=== PATIENT | male | born 1970 | race Caucasian/White ===

== ENCOUNTER 2020-03-16 17:50 | Inpatient (IN) | payer MEDICAID, SELFPAY ==
[2020-03-16 17:56] VITALS: BP 73/55; PULSE 121; RESP 18; TEMP 36.6; O2SAT 92; BMI 13.6
--- NOTE | 2020-03-16 18:13 | XR_ITS ---
WS: [id number] XR chest 1V portable [id number] REASON FOR EXAM: dyspnea FINDINGS: There is a cavitary complex mass in the right upper medial lung/mediastinum. Coarse reticular nodular interstitial infiltrative changes seen in association. Coarse reticular pattern seen throughout both lungs, accentuated in the lower lungs. 2 nodules in th e periphery of the extreme left lower lung overlying the left costophrenic angle. Interstitial infiltrative changes in the medial posterior most right lower lung. Chemotherapy port in place in the left chest wall with catheter through the left subclavian vein and tip at the cavoatrial junction. XR/XR chest 1V portable [id number] IMPRESSION: Neoplastic involvement of the chest as above. No prior examination for comparis on. Unable to identify acute abnormalities without previous for comparison.
--- NOTE | 2020-03-16 18:50 | W.ED.SOB ---
Documented by User: Checo Mendoza DO 03/17/20 08:04 HPI - SOB/Dyspnea General: Chief Complaint: Shortness of Breath/Dyspnea Stated Complaint: low o2 levels Time Seen by Provider: 03/16/20 18:07 History of Present Illness: HPI Narrative: 49-year-old male presents emergency room complaining of shortness of breath. He has a known history of pharyngeal CA and is currently getting chemotherapy in [place]. He had recently been in the [place] [facility] but he did not like the condition so they moved out with his son. He said shortness of breath last few weeks markedly worsened over the last several days he has moderately productive cough with chills. He does have a PEG tube and he does not usually swallow anything he has a history of COPD he is also had some loose stools recently. Not due for his next chemo treatment until the end of this month. MD elicited complaint: shortness of breath and cough Pertinent past history: COPD Onset (ago): week(s) Context: occurred during exertion Timing: constant Severity: severe Relieving factors: rest Associated symptoms: Reports chest congestion, cough and myalgias; Deny abdominal pain, chest pain, diaphoresis, dizziness, extremity pain, fever(s), hemoptysis, lightheadedness, orthopnea, palpitations, paresthesias, polydipsia, polyuria, rash, sense of impending doom, syncope or vomiting Treatment prior to arrival: none Review of Systems Const: Denies: fever(s) or diaphoresis ENMT: Denies: throat pain, ear or mastoid pain, nasal discharge or nasal congestion Card: Denies: chest pain, palpitations, lightheadedness, syncope or orthopnea Resp: Reports: chest congestion; Denies: hemoptysis GI: Denies: abdominal pain or vomiting : Denies: flank pain, dysuria, urinary frequency or urinary urgency Musc: Denies: extremity pain Skin/Breast: Denies: rash or pruritus Neuro: Denies: dizziness Endo: Denies: polyuria or polydipsia PFSH ED PFSH: Medical History (Updated 03/17/20 @ 01:32 by Farzad Mendez MD) COPD (chronic obstructive pulmonary disease) Esophageal cancer GERD (gastroesophageal reflux disease) Malignant neoplasm determined by biopsy of esophagus Pharyngeal cancer Port-A-Cath in place Surgical History (Updated 03/17/20 @ 01:32 by Farzad Mendez MD) H/O hand surgery H/O knee surgery S/P percutaneous endoscopic gastrostomy (PEG) tube placement Family History (Updated 03/17/20 @ 01:33 by Farzad Mendez MD) Other No pertinent family history Social History (Updated 03/17/20 @ 01:33 by Farzad Mendez MD) Smoking and tobacco status: former smoker Alcohol intake: never Substance/Drug Use: never Housing: House Physical Exam Const: GENERAL APPEARANCE: cooperative, lethargic and ill appearing NUTRITIONAL APPEARANCE: cachectic (Significant temporal wasting) ORIENTATION/CONSCIOUSNESS: Yes awake, Yes oriented to person, Yes oriented to place, Yes oriented to time and Yes lethargic HENMT: COMMON NORMALS: normocephalic, atraumatic and hearing grossly normal bilaterally HEAD & SCALP: normocephalic and atraumatic Neck/C-Spine: COMMON NORMALS: no JVD Resp: AUSCULTATION: wheezes and diminished lung sounds Cardio: COMMON NORMALS: no JVD, regular rate, regular rhythm and No murmurs present (Cardio) RATE: regular rate RHYTHM: regular rhythm GI: COMMON NORMALS: Soft to palpation and No hepatosplenomegaly present AUSCULTATION: Yes normoactive bowel sounds PALPATION: Yes Soft to palpation, No Tenderness to palpation present (GI), No Guarding due to palpation present (GI) and Yes No hepatosplenomegaly present Neuro: SENSORIUM/ORIENTATION: Yes oriented to person, Yes oriented to place, Yes oriented to time and Yes lethargic Skin: COMMON NORMALS: no rashes or lesions noted GENERAL SKIN EXAM: no rashes or lesions noted Course Vital Signs: Vital signs: Vital Signs Temperature 97.8 F 03/17/20 07:45 Pulse Rate 68 03/17/20 07:45 Respiratory Rate 18 03/17/20 07:45 Blood Pressure 88/63 03/17/20 07:45 Pulse Oximetry 100 03/17/20 07:45 MDM - SOB/Dyspnea MDM Narrative: Medical decision making narrative: Care turned over to Dr. Vasquez at change of shift see his notes for final diagnosis and disposition Lab Data: Labs: Lab Results 03/16/20 03/16/20 03/16/20 Range/Units 19:15 19:15 19:15 WBC 11.7 H (4.0-10.0) 10^3/ uL RBC 3.29 L (4.1-5.3) 10^6/u L Hgb 11.4 L (11.7-16.6) g/dL Hct 35.4 L (42.0-52.0) % MCV 107.6 H (80-94) fL MCH 34.7 H (28.0-34.0) pg MCHC 32.2 (30.0-36.0) g/dL RDW 14.4 (12.1-15.1) % Plt Count 229 (130-400) 10^3/c mm MPV 9.0 (7.4-10.4) fL Neut % (Auto) 83.2 % Lymph % (Auto) 6.2 % [place] % (Auto) 9.9 % Eos % (Auto) 0.1 % Baso % (Auto) 0.3 % Neut # (Auto) 9.74 H (1.8-7.7) 10^3/u L Lymph # (Auto) 0.7 L (0.8-4.8) 10^3/u L [place] # (Auto) 1.2 H (0.2-0.9) 10^3/u L Eos # (Auto) 0.0 (0.0-0.8) 10^3/u L Baso # (Auto) 0.0 (0.0-0.1) 10^3/u L Nucleated RBC % (a uto) 0 % Nucleated RBCs # 0.0 /100WBC D-Dimer 1.55 H (0-0.59) ug/mIFE U Sodium 139 (136-145) mmol/L Potassium 3.8 (3.5-5.1) mmol/L Chloride 101 (98-107) mmol/L Carbon Dioxide 32 H (22-29) mmol/L Anion Gap 9.8 (5-19) BUN 20 (6-20) mg/dL Creatinine 0.5 L (0.7-1.2) mg/dL GFR Calculation 175.3 H (90-130) mL/min Glucose 109 (65-115) mg/dL Calculated Osmolal ity 291 (285-295) mOsm/k g Lactic Acid (0.5-2.2) mmol/L Calcium 9.5 (8.5-10.5) mg/dL Total Bilirubin 0.5 (0.15-1.2) mg/dL AST 66 H (0-40) U/L ALT 71 H (0-41) U/L Alkaline Phosphata se 121 (40-130) IU/L Creatine Kinase 8 L (39-308) U/L Troponin T Baselin e (0-15) ng/L Troponin T 120 Min [place] (0-15) ng/L Delta Troponin T (0-10) ABS# C-Reactive Protein 9.9 H (0.0-4.9) mg/L Total Protein 6.7 (6.6-8.7) g/dL Albumin 3.1 L (3.5-5.2) g/dL Globulin 3.6 (1.3-4.6) g/dL SARS-CoV-2 Ag (Rap id) (Negative) 03/16/20 03/16/20 03/16/20 Range/Units 19:15 19:23 22:46 WBC (4.0-10.0) 10^3/ uL RBC (4.1-5.3) 10^6/u L Hgb (11.7-16.6) g/dL Hct (42.0-52.0) % MCV (80-94) fL MCH (28.0-34.0) pg MCHC (30.0-36.0) g/dL RDW (12.1-15.1) % Plt Count (130-400) 10^3/c mm MPV (7.4-10.4) fL Neut % (Auto) % Lymph % (Auto) % [place] % (Auto) % Eos % (Auto) % Baso % (Auto) % Neut # (Auto) (1.8-7.7) 10^3/u L Lymph # (Auto) (0.8-4.8) 10^3/u L [place] # (Auto) (0.2-0.9) 10^3/u L Eos # (Auto) (0.0-0.8) 10^3/u L Baso # (Auto) (0.0-0.1) 10^3/u L Nucleated RBC % (a uto) % Nucleated RBCs # /100WBC D-Dimer (0-0.59) ug/mIFE U Sodium (136-145) mmol/L Potassium (3.5-5.1) mmol/L Chloride (98-107) mmol/L Carbon Dioxide (22-29) mmol/L Anion Gap (5-19) BUN (6-20) mg/dL Creatinine (0.7-1.2) mg/dL GFR Calculation (90-130) mL/min Glucose (65-115) mg/dL Calculated Osmolal ity (285-295) mOsm/k g Lactic Acid 1.3 (0.5-2.2) mmol/L Calcium (8.5-10.5) mg/dL Total Bilirubin (0.15-1.2) mg/dL AST (0-40) U/L ALT (0-41) U/L Alkaline Phosphata se (40-130) IU/L Creatine Kinase (39-308) U/L Troponin T Baselin e 12 (0-15) ng/L Troponin T 120 Min [place] (0-15) ng/L Delta Troponin T (0-10) ABS# C-Reactive Protein (0.0-4.9) mg/L Total Protein (6.6-8.7) g/dL Albumin (3.5-5.2) g/dL Globulin (1.3-4.6) g/dL SARS-CoV-2 Ag (Rap id) Negative (Negative) 03/17/20 Range/Units 00:53 WBC (4.0-10.0) 10^3/ uL RBC (4.1-5.3) 10^6/u L Hgb (11.7-16.6) g/dL Hct (42.0-52.0) % MCV (80-94) fL MCH (28.0-34.0) pg MCHC (30.0-36.0) g/dL RDW (12.1-15.1) % Plt Count (130-400) 10^3/c mm MPV (7.4-10.4) fL Neut % (Auto) % Lymph % (Auto) % [place] % (Auto) % Eos % (Auto) % Baso % (Auto) % Neut # (Auto) (1.8-7.7) 10^3/u L Lymph # (Auto) (0.8-4.8) 10^3/u L [place] # (Auto) (0.2-0.9) 10^3/u L Eos # (Auto) (0.0-0.8) 10^3/u L Baso # (Auto) (0.0-0.1) 10^3/u L Nucleated RBC % (a uto) % Nucleated RBCs # /100WBC D-Dimer (0-0.59) ug/mIFE U Sodium (136-145) mmol/L Potassium (3.5-5.1) mmol/L Chloride (98-107) mmol/L Carbon Dioxide (22-29) mmol/L Anion Gap (5-19) BUN (6-20) mg/dL Creatinine (0.7-1.2) mg/dL GFR Calculation (90-130) mL/min Glucose (65-115) mg/dL Calculated Osmolal ity (285-295) mOsm/k g Lactic Acid (0.5-2.2) mmol/L Calcium (8.5-10.5) mg/dL Total Bilirubin (0.15-1.2) mg/dL AST (0-40) U/L ALT (0-41) U/L Alkaline Phosphata se (40-130) IU/L Creatine Kinase (39-308) U/L Troponin T Baselin e (0-15) ng/L Troponin T 120 Min [place] 9.77 (0-15) ng/L Delta Troponin T -2.23 L (0-10) ABS# C-Reactive Protein (0.0-4.9) mg/L Total Protein (6.6-8.7) g/dL Albumin (3.5-5.2) g/dL Globulin (1.3-4.6) g/dL SARS-CoV-2 Ag (Rap id) (Negative) Discharge Plan Discharge Patient Disposition: Admitted As Inpatient Admit Provider: Farzad Mendez Clinical Impression: Pneumonia Qualifiers: Pneumonia type: due to unspecified organism Laterality: right Lung location: upper lobe of lung Qualified Code(s): J18.9 - Pneumonia, unspecified organism Esophageal cancer Qualifiers: Malignant neoplasm of esophagus location: upper third Qualified Code(s): C15.3 - Malignant neoplasm of upper third of esophagus Condition: Stable Sign Out Sign Out Data: Patient Sign Out occurred on 03/16/20 at 20:16. Patient's care was discussed, and care was transferred from to Gifty Bourne. Coding Level of Care Code ED Metal Template Maker for [facility] Fwd Exam Detailed Documented by User: Gifty Bourne 03/17/20 00:58 HPI - SOB/Dyspnea General: Chief Complaint: Shortness of Breath/Dyspnea Stated Complaint: low o2 levels Time Seen by Provider: 03/16/20 18:07 PFS ED PFSH: Medical History (Updated 03/17/20 @ 01:32 by Farzad Mendez MD) COPD (chronic obstructive pulmonary disease) Esophageal cancer GERD (gastroesophageal reflux disease) Malignant neoplasm determined by biopsy of esophagus Pharyngeal cancer Port-A-Cath in place Surgical History (Updated 03/17/20 @ 01:32 by Farzad Mendez MD) H/O hand surgery H/O knee surgery S/P percutaneous endoscopic gastrostomy (PEG) tube placement Family History (Updated 03/17/20 @ 01:33 by Farzad Mendez MD) Other No pertinent family history Social History (Updated 03/17/20 @ 01:33 by Farzad Mendez MD) Smoking and tobacco status: former smoker Alcohol intake: never Substance/Drug Use: never Housing: House Course ED course: 2301 -EKG and history and exam were reviewed with Dr. Edward, as the patient has chest pain only when coughing he would like to wait to see what the troponin results are. Vital Signs: Vital signs: Vital Signs Temperature 97.8 F 03/17/20 07:45 Pulse Rate 68 03/17/20 07:45 Respiratory Rate 18 03/17/20 07:45 Blood Pressure 88/63 03/17/20 07:45 Pulse Oximetry 100 03/17/20 07:45 MDM - SOB/Dyspnea MDM Narrative: Medical decision making narrative: The case was reviewed with Dr. Perry, the patient's oncologist at [place]. He states the patient has a very poor prognosis and is likely end-stage. He states at this time the patient can be treated like a normal pneumonia and if he recovers in a few months he may be able to talk about further treatment but he overall does not think that is likely to happen. Old records were received from [place] this patient's fistula is unchanged going back all the way to November. Dr. Kumar also commented that there is no definitive treatment for this. I have endorsed the case to Dr. Mendez and he agrees to come and see and evaluate the patient. Lab Data: Labs: Lab Results 03/16/20 03/16/20 03/16/20 Range/Units 19:15 19:15 19:15 WBC 11.7 H (4.0-10.0) 10^3/ uL RBC 3.29 L (4.1-5.3) 10^6/u L Hgb 11.4 L (11.7-16.6) g/dL Hct 35.4 L (42.0-52.0) % MCV 107.6 H (80-94) fL MCH 34.7 H (28.0-34.0) pg MCHC 32.2 (30.0-36.0) g/dL RDW 14.4 (12.1-15.1) % Plt Count 229 (130-400) 10^3/c mm MPV 9.0 (7.4-10.4) fL Neut % (Auto) 83.2 % Lymph % (Auto) 6.2 % [place] % (Auto) 9.9 % Eos % (Auto) 0.1 % Baso % (Auto) 0.3 % Neut # (Auto) 9.74 H (1.8-7.7) 10^3/u L Lymph # (Auto) 0.7 L (0.8-4.8) 10^3/u L [place] # (Auto) 1.2 H (0.2-0.9) 10^3/u L Eos # (Auto) 0.0 (0.0-0.8) 10^3/u L Baso # (Auto) 0.0 (0.0-0.1) 10^3/u L Nucleated RBC % (a uto) 0 % Nucleated RBCs # 0.0 /100WBC D-Dimer 1.55 H (0-0.59) ug/mIFE U Sodium 139 (136-145) mmol/L Potassium 3.8 (3.5-5.1) mmol/L Chloride 101 (98-107) mmol/L Carbon Dioxide 32 H (22-29) mmol/L Anion Gap 9.8 (5-19) BUN 20 (6-20) mg/dL Creatinine 0.5 L (0.7-1.2) mg/dL GFR Calculation 175.3 H (90-130) mL/min Glucose 109 (65-115) mg/dL Calculated Osmolal ity 291 (285-295) mOsm/k g Lactic Acid (0.5-2.2) mmol/L Calcium 9.5 (8.5-10.5) mg/dL Total Bilirubin 0.5 (0.15-1.2) mg/dL AST 66 H (0-40) U/L ALT 71 H (0-41) U/L Alkaline Phosphata se 121 (40-130) IU/L Creatine Kinase 8 L (39-308) U/L Troponin T Baselin e (0-15) ng/L Troponin T 120 Min [place] (0-15) ng/L Delta Troponin T (0-10) ABS# C-Reactive Protein 9.9 H (0.0-4.9) mg/L Total Protein 6.7 (6.6-8.7) g/dL Albumin 3.1 L (3.5-5.2) g/dL Globulin 3.6 (1.3-4.6) g/dL SARS-CoV-2 Ag (Rap id) (Negative) 03/16/20 03/16/20 03/16/20 Range/Units 19:15 19:23 22:46 WBC (4.0-10.0) 10^3/ uL RBC (4.1-5.3) 10^6/u L Hgb (11.7-16.6) g/dL Hct (42.0-52.0) % MCV (80-94) fL MCH (28.0-34.0) pg MCHC (30.0-36.0) g/dL RDW (12.1-15.1) % Plt Count (130-400) 10^3/c mm MPV (7.4-10.4) fL Neut % (Auto) % Lymph % (Auto) % [place] % (Auto) % Eos % (Auto) % Baso % (Auto) % Neut # (Auto) (1.8-7.7) 10^3/u L Lymph # (Auto) (0.8-4.8) 10^3/u L [place] # (Auto) (0.2-0.9) 10^3/u L Eos # (Auto) (0.0-0.8) 10^3/u L Baso # (Auto) (0.0-0.1) 10^3/u L Nucleated RBC % (a uto) % Nucleated RBCs # /100WBC D-Dimer (0-0.59) ug/mIFE U Sodium (136-145) mmol/L Potassium (3.5-5.1) mmol/L Chloride (98-107) mmol/L Carbon Dioxide (22-29) mmol/L Anion Gap (5-19) BUN (6-20) mg/dL Creatinine (0.7-1.2) mg/dL GFR Calculation (90-130) mL/min Glucose (65-115) mg/dL Calculated Osmolal ity (285-295) mOsm/k g Lactic Acid 1.3 (0.5-2.2) mmol/L Calcium (8.5-10.5) mg/dL Total Bilirubin (0.15-1.2) mg/dL AST (0-40) U/L ALT (0-41) U/L Alkaline Phosphata se (40-130) IU/L Creatine Kinase (39-308) U/L Troponin T Baselin e 12 (0-15) ng/L Troponin T 120 Min [place] (0-15) ng/L Delta Troponin T (0-10) ABS# C-Reactive Protein (0.0-4.9) mg/L Total Protein (6.6-8.7) g/dL Albumin (3.5-5.2) g/dL Globulin (1.3-4.6) g/dL SARS-CoV-2 Ag (Rap id) Negative (Negative) 03/17/20 Range/Units 00:53 WBC (4.0-10.0) 10^3/ uL RBC (4.1-5.3) 10^6/u L Hgb (11.7-16.6) g/dL Hct (42.0-52.0) % MCV (80-94) fL MCH (28.0-34.0) pg MCHC (30.0-36.0) g/dL RDW (12.1-15.1) % Plt Count (130-400) 10^3/c mm MPV (7.4-10.4) fL Neut % (Auto) % Lymph % (Auto) % [place] % (Auto) % Eos % (Auto) % Baso % (Auto) % Neut # (Auto) (1.8-7.7) 10^3/u L Lymph # (Auto) (0.8-4.8) 10^3/u L [place] # (Auto) (0.2-0.9) 10^3/u L Eos # (Auto) (0.0-0.8) 10^3/u L Baso # (Auto) (0.0-0.1) 10^3/u L Nucleated RBC % (a uto) % Nucleated RBCs # /100WBC D-Dimer (0-0.59) ug/mIFE U Sodium (136-145) mmol/L Potassium (3.5-5.1) mmol/L Chloride (98-107) mmol/L Carbon Dioxide (22-29) mmol/L Anion Gap (5-19) BUN (6-20) mg/dL Creatinine (0.7-1.2) mg/dL GFR Calculation (90-130) mL/min Glucose (65-115) mg/dL Calculated Osmolal ity (285-295) mOsm/k g Lactic Acid (0.5-2.2) mmol/L Calcium (8.5-10.5) mg/dL Total Bilirubin (0.15-1.2) mg/dL AST (0-40) U/L ALT (0-41) U/L Alkaline Phosphata se (40-130) IU/L Creatine Kinase (39-308) U/L Troponin T Baselin e (0-15) ng/L Troponin T 120 Min [place] 9.77 (0-15) ng/L Delta Troponin T -2.23 L (0-10) ABS# C-Reactive Protein (0.0-4.9) mg/L Total Protein (6.6-8.7) g/dL Albumin (3.5-5.2) g/dL Globulin (1.3-4.6) g/dL SARS-CoV-2 Ag (Rap id) (Negative) EKG Data^: EKG 1: Attestation: I personally reviewed and interpreted this EKG as follows: EKG Interpretation Date: 03/16/20 EKG interpretation time: 22:54 Interpretation: Normal sinus rhythm with first-degree AV block, ST segment elevation 2, 3 and aVF. 2 inversions in aVL and V2. EKG 2: Attestation: I personally reviewed and interpreted this EKG as follows: EKG Interpretation Date: 03/17/20 EKG interpretation time: 00:15 Interpretation: Normal sinus rhythm first-degree AV block, ST elevation inferiorly and T wave inversions in aVL and V2. Unchanged from previous. 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 Patient's care was discussed, and care was transferred from to [facility]. Coding Level of Care Code ED Metal Template Maker for [facility] Fwd Exam Detailed
[2020-03-16] MEDS: morphine 4 mg/mL SDV 1 mL IVP (19:28)
[2020-03-16] MEDS: dexamethasone 4 mg/mL INJ 6 MG IVP (19:28)
[2020-03-16] MEDS: sodium chloride 0.9% 500 ML 999 ML IV (19:28)
[2020-03-16] MEDS: ondansetron 2 mg/ML SDV 2 mL 4 MG IVP (19:28)
[2020-03-16 19:30] VITALS: BP 89/65; PULSE 99; RESP 18; O2SAT 92
[2020-03-16 19:30] LABS: Basophils % 0.3 %; Eosinophils % 0.1 %; Hematocrit 35.4 % (42.0-52.0); Hemoglobin 11.4 g/dL (11.7-16.6); Lymphocytes # 0.7 10^3/uL (0.8-4.8); Lymphocytes % 6.2 %; Mean Corpuscular HGB Conc 32.2 g/dL (30.0-36.0); Mean Corpuscular Hemoglobin 34.7 pg (28.0-34.0); Mean Corpuscular Volume 107.6 fL (80-94); Monocytes # 1.2 10^3/uL (0.2-0.9); Monocytes % 9.9 %; Neutrophils # 9.74 10^3/uL (1.8-7.7); Neutrophils % 83.2 %; Nucleated Red Blood Cells % 0 %; Platelet Count 229 10^3/cmm (130-400); Red Blood Count 3.29 10^6/uL (4.1-5.3); Red Cell Distribution Width 14.4 % (12.1-15.1); White Blood Count 11.7 10^3/uL (4.0-10.0)
[2020-03-16 19:48] LABS: D Dimer 1.55 ug/mIFEU (0-0.59)
[2020-03-16 19:55] LABS: Alanine Aminotransferase 71 U/L (0-41); Albumin Level 3.1 g/dL (3.5-5.2); Alkaline Phosphatase 121 IU/L (40-130); Anion Gap 9.8 (5-19); Aspartate Amino Transferase 66 U/L (0-40); Blood Urea Nitrogen 20 mg/dL (6-20); C Reactive Protein 9.9 mg/L (0.0-4.9); Calcium 9.5 mg/dL (8.5-10.5); Carbon Dioxide 32 mmol/L (22-29); Chloride 101 mmol/L (98-107); Creatine Phosphokinase 8 U/L (39-308); Globulin 3.6 g/dL (1.3-4.6); Glomerular Filtration Rate 175.3 mL/min (90-130); Glucose 109 mg/dL (65-115); Osmolality Calculated 291 mOsm/kg (285-295); Potassium 3.8 mmol/L (3.5-5.1); Sodium 139 mmol/L (136-145); Total Bilirubin 0.5 mg/dL (0.15-1.2); Total Protein 6.7 g/dL (6.6-8.7)
[2020-03-16 19:58] LABS: SARS Covid-2 Antigen Negative (Negative)
--- NOTE | 2020-03-16 20:00 | CTR_ITS ---
PROCEDURE INFORMATION: Exam: CT Angiography Chest With Contrast Exam date and time: 03/16/2020 8:08 PM Age: 49 years old Clinical indication: Shortness of breath; Prior surgery; Surgery type: Port, feeding tube; Additional info: Dyspnea TECHNIQUE: Imaging protocol: Computed tomographic angiography of the chest with intravenous contrast. 3D rendering (Not supervised by radiologist): MIP and/or 3D reconstructed images were created by the technologist. Radiation optimization: All CT scans at this facility use at least one of these dose optimization techniques: automated exposure control; mA and/or kV adjustment per patient size (includes targeted exams where dose is matched to clinical indication); or iterative reconstruction. Contrast material: OMNI 350; Contrast volume: 72 ml; Contrast route: INTRAVENOUS (IV); COMPARISON: CR XR chest 1V portable [id number] 03/16/2020 6:16 PM RADIATION DOSE METRICS: Total DLP (mGy-cm): 472.15 FINDINGS: Tubes, catheters and devices: Percutaneous gastric tube tip in the stomach. Left central venous catheter. Pulmonary arteries: Normal. No pulmonary emboli. Aorta: Unremarkable. No aortic aneurysm. No aortic dissection. Lungs: Diffuse tree-in-bud type reticular nodular densities throughout the lungs may reflect an atypical mycobacterial infection, other etiologies not excluded. Left upper lobe anterior segment 7.2 mm somewhat cavitary nodule. Right lower lobe 9.2 mm nodule. Several left lower lobe pulmonary nodules with central calcifications measuring up 9.6 mm suggestive of granulomas. Bibasilar atelectasis versus infiltrate. Right upper lobe pleuroparenchymal scarring. Pleural space: Unremarkable. No pneumothorax. No pleural effusion. Heart: Coronary artery atherosclerotic calcifications. Mediastinal space: Defect in the right aspect of the upper esophagus with an associated 4.8 cm subpleural collection of fluid with soft tissue density in the right upper lung measuring 4.8 cm may reflect underlying malignancy and/or infection with a fistulous tract from the esophagus to the subpleural space. Lymph nodes: Unremarkable. No enlarged lymph nodes. Bones/joints: Unremarkable. No acute fracture. Soft tissues: Unremarkable. CT/CT angio chest PE protcl [id number] IMPRESSION: 1. Coronary artery atherosclerotic calcifications. 2. Defect in the right aspect of the upper esophagus with an associated 4.8 cm subpleural collection of fluid with soft tissue density in the right upper lung measuring 4.8 cm may reflect underlying malignancy and/or infection with a fistulous tract from the esophagus to the subpleural space. 3. Diffuse tree-in-bud type reticular nodular densities throughout the lungs may reflect an atypical mycobacterial infection, other etiologies not excluded. 4. Left upper lobe anterior segment 7.2 mm somewhat cavitary nodule. See below for management recommendation. 5. Right lower lobe 9.2 mm nodule. Highly suspicious nodule(s). Consider PET/CT, or tissue sampling.(Reference: Matheus) 6. Several left lower lobe pulmonary nodules with central calcifications measuring up 9.6 mm suggestive of granulomas. 7. Bibasilar atelectasis versus infiltrate. 8. Percutaneous gastric tube tip in the stomach. REFERENCES: Matheus Woodward, et al. Guidelines for Management of Incidental Pulmonary Nodules Detected on CT Images: From the Fleischner Society 2017. Radiology. 2017;284(1):228-243. Radiation Dose CTDIVOL = (mGy): DLP = 472.15 (mGy-cm)
[2020-03-16 20:08] LABS: Lactic Sepsis W/Reflex 1.3 mmol/L (0.5-2.2)
[2020-03-16] MEDS: iohexol 300 mg/mL 100 mL Btl IV (21:29)
[2020-03-16] MEDS: sodium chloride 0.9% 1,000 ML 999 ML IV (22:11)
--- NOTE | 2020-03-16 22:29 | ECG_ITS ---
[facility] Test Date: 2020-03-16 Pat Name: Jessica Gonzalez Department: Room: Gender: Male Immigration Manager: shellie : 1970 Requested By: Gifty Junior Order Number: [id number] Wayne MD: Padma Aguilar M.D. Measurements Intervals [place] Rate: 93 P: 80 MN: 202 QRS: 79 QRSD: 88 T: 87 QT: 348 QTc: 433 Interpretive Statements SINUS RHYTHM WITH OCCASIONAL VENTRICULAR PREMATURE COMPLEXES MODERATE ST DEPRESSION [0.05+ mV ST DEPRESSION] No previous ECG available for comparison Electronically Signed On 03-17-2020 19:35:44 LIQUID NATURAL GAS PLANT OPERATOR by Padma Aguilar M.D. [id number] f
--- NOTE | 2020-03-16 22:36 | ECG_ITS ---
[facility] Test Date: 2020-03-16 Pat Name: Jessica Gonzalez Department: Room: Gender: Male Cad Draftsman: shellie : 1970 Requested By: Gifty Junior Order Number: [id number] Black MD: Padma Aguilar M.D. Measurements Intervals [place] Rate: 87 P: 78 [place]: 215 QRS: 78 QRSD: 81 T: 85 QT: 353 QTc: 427 Interpretive Statements SINUS RHYTHM WITH FIRST DEGREE AV BLOCK SEPTAL MYOCARDIAL INFARCTION [40+ ms Q WAVE IN V1/V2], OF INDETERMINATE AGE ST ELEVATION, CONSIDER INFERIOR INJURY [MARKED ST ELEVATION W/O NORMALLY INFLECTED T WAVE IN II/aVF] ACUTE AK Compared to ECG 03/16/2020 22:34:10 First degree AV block now present Myocardial infarct finding now present Ventricular premature complex(es) no longer present ST (T wave) deviation still present Electronically Signed On 03-17-2020 20:33:13 WAITER/WAITRESS FIRST CLASS by Padma Aguilar M.D. [id number]
[2020-03-16 23:36] LABS: Troponin(5th) Baseline 12 ng/L (0-15)
[2020-03-16] MEDS: piperacillin-tazobactam 3.375 GM in sodium chloride 0.9% (plus) 50 ML IV (23:38)
--- NOTE | 2020-03-16 23:53 | P.HP_ITS ---
Providers/Chief Complaint Chief Complaint: low o2 levels History of Present Illness Jessica Gonzalez is a 49 year old male presented to the hospital with chief complaint of shortness of breath and chest pain with coughing. Patient is not able to give much detail I called his son to get the report to me that his father moved in with him on Monday, he does not know much about his past medical history but endorsing that in September he got diagnosed with esophageal cancer with metastases to lungs. On further questioning he said his father mostly keeps everything to himself would not share much information with children at all. His son called independent living [facility] to arrange home health services yesterday morning. Patient is able to tell me that he is in the hospital for worsening shortness of breath chest pain which gets worse on coughing, chest pain on the left side, he did not vomit, no nausea, diaphoresis. At home he has been using popsicles and soda to give flavor to his tongue, otherwise feeds via PEG tube. ER physician was able to get in touch with oncologist at [facility] who told us that chemotherapy was on held because he was not able to tolerate it anymore. Patient stated that he is status post radiotherapy and finished 4 cycles of chemotherapy apparently he is on Keytruda. He wants to live with his children that is why he moved to [place]. Diagnosis in the ER revealed hypotension patient is chest pain-free afebrile, mild leukocytosis high D-dimer first troponin XII second troponin IX EKG showing ST elevation in lead II, III, aVF, EKG reviewed by medical massage therapist as well, considering nonsignificant delta troponin and chest pain-free STEMI was not called. 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 I increased his oxygen requirement to 5 L because of his hypoxia on 3 L i.e 88-99% . records were requested from [facility], this fistula is chronic was diagnosed in November 2019, he was put on Levaquin for atypical mycobacterial coverage. His oncologist told ER physician that he is not a good candidate for any kind of surgical intervention. I called son and discussed current findings, old records. Review of Systems Const: Reports: chills, body aches, change in appetite, change in weight, fatigue and malaise; Denies: fever(s) Eyes: Denies: change in vision ENMT: Denies: throat pain Card: Reports: chest pain and dyspnea on exertion Resp: Reports: dyspnea GI: Denies: abdominal pain : Denies: flank pain Musc: Reports: muscle cramps, muscle weakness and decrease in muscle mass Skin/Breast: Reports: lesions Neuro: Reports: weakness in extremities Psych: Reports: depression; Denies: anxiety Endo: Reports: tired all the time Max/Lymph: Denies: easy bruising All/Imm: Denies: urticaria Medications/Allergies Home Medications Medication Instructions Recorded Confirmed Last Taken Type alprazolam 1 mg PO DAILY@2100 03/16/20 03/16/20 03/15/20 History levofloxacin 500 mg FEEDING TUBE DAILY@0800 03/16/20 03/16/20 03/16/20 History olanzapine 5 mg FEEDING TUBE DAILY@0800 03/16/20 03/16/20 03/16/20 History oxycodone 5 mg FEEDING TUBE Q4H PRN 03/16/20 03/16/20 03/16/20 History prochlorperazine 10 mg FEEDING TUBE DAILY@0800 03/16/20 03/16/20 03/16/20 History Allergies Allergy/AdvReac Type Severity Reaction Status Date / Time No Known Allergies Allergy Verified 03/16/20 18:04 PFSH Acute PFSH: Medical History (Updated 03/17/20 @ 01:32 by Farzad Mendez MD) COPD (chronic obstructive pulmonary disease) Esophageal cancer GERD (gastroesophageal reflux disease) Malignant neoplasm determined by biopsy of esophagus Pharyngeal cancer Port-A-Cath in place Surgical History (Updated 03/17/20 @ 01:32 by Farzad Mendez MD) H/O hand surgery H/O knee surgery S/P percutaneous endoscopic gastrostomy (PEG) tube placement Family History (Updated 03/17/20 @ 01:33 by Farzad Mendez MD) Other No pertinent family history Social History (Updated 03/17/20 @ 01:33 by Farzad Mendez MD) Smoking and tobacco status: former smoker Alcohol intake: never Substance/Drug Use: never Housing: House Vitals/I&O/Wt Last Vital Signs Temp 97.8 F 03/16/20 17:56 Pulse 99 03/16/20 19:30 Resp 18 03/16/20 19:30 BP 89/65 03/16/20 19:30 Pulse Ox 92 03/16/20 19:30 Weight last 48 hrs Weight 44.452 kg Physical Exam Narrative: EXAM NARRATIVE: This is a frail cachectic appearing male who appears more than stated age extremely dehydrated and malnourished Oxygen requirement increased from 3 to 5 L Not complaining of active chest pain however received analgesia S1, S2 sinus rhythm no signs of heart failure PEG tube placement has dry crusting around the placement site with most likely fungal excoriation of surrounding skin Lower extremity no edema Thin extremities Prominent bones with sarcopenia Nontender abdomen PEG tube site description mentioned above EOMI, PERRLA Awake alert oriented x3 GCS 15 Mood seems to be low No neurological deficit Left chest port of cath placement without any active drainage, site nontender Data : 03/16/20 19:15 03/16/20 19:15 A&P Assessment and plan (1) Esophageal cancer: Status: Acute Qualifiers: Malignant neoplasm of esophagus location: upper third Qualified Code(s): C15.3 - Malignant neoplasm of upper third of esophagus (2) COPD (chronic obstructive pulmonary disease): Status: Acute (3) Community acquired pneumonia: Status: Acute (4) Acute respiratory failure with hypoxia: Status: Acute Additional A&P Information Esophageal cancer with metastases to lung 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, status post radiotherapy 4 cycles of chemotherapy currently on [facility] Oncologist at [facility] chemotherapy session secondary to poor performance, not a surgical candidate for fistula repair or pneumonectomy PEG tube site has some fungal excoriation CT scan rule out PE however showing chronic changes with right upper lung cavitary mass, postobstructive pneumonia and esophageal pleural fistula I would start linezolid, meropenem, Levaquin for broad-spectrum antibacterial, atypical antimicrobial and anaerobic coverage Obtain blood and sputum culture however he is not septic at the time of admission Pleuritic chest pain PE ruled out, ST elevation evident on lead II, III, aVF however chest pain-free and troponin not significantly high, EKG reviewed by medical massage therapist STEMI alert was not called I would treat him medically with therapeutic dose of Lovenox and dual antiplatelet therapy for now Obtain echo in the morning Acute hypoxia with chronic COPD Does not use oxygen at home currently on 5 L nasal cannula High risk for intubation Goals of care discussed with the patient who stated DNR/DNI status DuoNeb, antibiotics, Malnourished sarcopenia PEG tube with close monitoring as there is also a risk of aspiration pneumonitis/pneumonia We will keep feeding tube rate at 20 cc for now Nystatin application around PEG tube placement site DNR/DNI N.p.o., PEG tube feeding DVT prophylaxis not needed currently on therapeutic dose of Lovenox Son was asking for home health services, he was also leaning towards palliative care for his father, will consult social service, we had discussion about current findings, prognosis, complications and high risk of mortality morbidity, he seemed to be receptive, all questions were answered Attestations Medical Necessity Statement*: Anticipating stay in the hospital cross more than 2 midnights considering higher mortality and morbidity and risk of deterioration he will need ICU monitoring, EKG concerning for STEMI however chest pain-free troponin not significantly high Time Spent in Patient Care: (>than 50% of time spent in counselling and/or direct pt care on unit) . 50mins Coding Level of Care Code Acute Acid Crane Operator for g Fwd Diagnoses Esophageal cancer C15.3 Malignant neoplasm of esophagus location: upper third COPD (chronic obstructive pulmonary disease) J44.9 Community acquired pneumonia J18.9 Acute respiratory failure with hypoxia J96.01
[2020-03-17] VITALS (17 sets, daily range): BP systolic 79–102; BP diastolic 46–65; PULSE 60–98; RESP 15–22; TEMP 36.4–36.6; O2SAT 91–100
--- NOTE | 2020-03-17 00:36 | ECG_ITS ---
[facility] Test Date: 2020-03-17 Pat Name: Jessica Gonzalez Department: Room: Gender: Male Stationary Engineer: : 1970 Requested By: Gifty Junior Order Number: [id number] Black MD: Padma Aguilar M.D. Measurements Intervals [place] Rate: 84 P: 80 [place]: 216 QRS: 77 QRSD: 85 T: 85 QT: 372 QTc: 442 Interpretive Statements SINUS RHYTHM WITH FIRST DEGREE AV BLOCK MODERATE ST DEPRESSION [0.05+ mV ST DEPRESSION] Compared to ECG 03/16/2020 22:54:59 Myocardial infarct finding no longer present ST (T wave) deviation still present Electronically Signed On 03-17-2020 20:04:15 CASING SOAKER by Padma Aguilar M.D. [id number]
[2020-03-17] MEDS: morphine 4 mg/mL SDV 1 mL IVP (00:40)
[2020-03-17 01:14] LABS: Troponin 5 2HR 9.77 ng/L (0-15)
[2020-03-17 01:36] LABS: Troponin 5 2HR Delta -2.23 ABS# (0-10)
--- NOTE | 2020-03-17 03:00 | USCV_ITS ---
Jessica Gonzalez Age: 49 Gender: M : 1970 Exam Date: 03/17/2020 06:20 Ordering Phys: Farzad Mendez MD Technologist: Joshua Baltazar Exam Location: [facility] [place] Indication: NSTEMI BP: 97 / 56 HR: 54 Rhythm: Sinus Technical Quality: Very technically difficult study MEASUREMENTS (Male / Female) Normal Values 2D ECHO LV Diastolic Diameter PLAX 2.7 cm 4.2 - 5.9 / 3.9 - 5.3 cm LV Systolic Diameter PLAX 2.2 cm IVS Diastolic Thickness 1.1 cm 0.6 - 1.0 / 0.6 - 0.9 cm IVS Systolic Thickness 1.1 cm LVPW Diastolic Thickness 1.0 cm 0.6 - 1.0 / 0.6 - 0.9 cm LVPW Systolic Thickness 1.3 cm LVOT Diameter 2.1 cm LV Ejection Fraction 2D Teich 35.4 % LA Diameter 3.1 cm LA Width 3.1 cm LA Height 3.5 cm RA Width 3.0 cm RA Height 4.1 cm Aorta at Sinotubular Diameter 2.7 cm M-MODE LV Diastolic Diameter MM 4.3 cm 4.2 - 5.9 / 3.9 - 5.3 cm LV Systolic Diameter MM 3.1 cm LV Ejection Fraction MM Teich 57.0 % IVS Diastolic Thickness MM 0.7 cm 0.6 - 1.0 / 0.6 - 0.9 cm IVS Systolic Thickness MM 1.0 cm LVPW Diastolic Thickness MM 0.8 cm 0.6 - 1.0 / 0.6 - 0.9 cm LVPW Systolic Thickness MM 1.1 cm RV Diastolic Diameter MM 0.8 cm Aortic Annulus Diameter 3.0 cm LA Ao Ratio MM 1.1 MV E Point Septal Separation 1.1 cm DOPPLER AV Peak Velocity 126.0 cm/s LVOT Peak Velocity 50.0 cm/s AV Area Cont Eq vti 1.4 cm squared AV Area Cont Eq pk 1.4 cm squared MV Area PHT 3.0 cm squared Mitral E to A Ratio 0.9 MV E' Velocity 48.7 cm/s TR Peak Velocity 164.0 cm/s TR Peak Gradient 10.8 mmHg TV Peak E Velocity 71.0 cm/s Right Atrial Pressure 3.0 mmHg Pulmonary Artery Systolic Pressu 13.8 mmHg FINDINGS Left Ventricle LV size with demonstration fraction of 35 to 40%. The septum and anteroseptum appears to be diffusely hypokinetic. Possible hypokinesia of the apex. Segmental wall motion analysis difficult because of the very poor apical window Right Ventricle The right ventricle is normal in size and function. Right Atrium The right atrium is normal in size. Left Atrium The left atrium is normal in size. Mitral Valve No gross abnormalities noted . Aortic Valve No gross abnormalities noted Tricuspid Valve Not visualized well. Pulmonic Valve Pulmonic valve not well visualized. Pericardium No pericardial effusion. Aorta Normal aortic annulus size. CONCLUSIONS Normal left ventricular size with diminished ejection fraction of 35 to 40%. The septum and anteroseptum appears to be diffusely hypokinetic. Possible hypokinesia of the apex. Segmental wall motion analysis difficult because of the very poor apical window. There is no pericardial effusion. No previous studies available for comparison Technically difficult study because of the poor ultrasonic window. Dr Galina Handy MD FACC (Electronically Signed) Final Date: 17 March 2020 14:02 S
[2020-03-17] MEDS: LORazepam 2 mg/mL INJ 1 mL 1 MG IVP (03:27)
[2020-03-17] MEDS: levofloxacin-dextrose 5 % 750 MG/150 ML PREMIX 100 MG IV (03:28)
[2020-03-17] MEDS: linezolid premix 600 MG/300 ML PREMIX 300 MG IV ×2 (04:26→15:09)
[2020-03-17] MEDS: nystatin powder 15 gm Btl 1 APPLIC TOPICAL (04:26)
--- NOTE | 2020-03-17 04:44 | PC.NURSE ---
Shift Summary Patient arrived to floor from ER, too weak to transfer self to bed so moved with draw sheet by nursing staff. ROBBY infused through port-a-cath with no issues. He states that he usually takes 6 cans of osmalite a day, usually every 4hours at home. He gets this through [employer]. Glucerna ordered in ER and brought to floor. Patient exoriated around PEG tub site, nystatin applied as ordered and clean drain sponge placed. Orders to run at 20ml/hr. Peg flushed with no reistance, Glucerna running now. He recently moved in with his son, was previously living in [place]. He does not have a primary care physician but states that he has been seeing an oncologist at [place]. He doesn't use any DME to transfer, but does have a nebulizer at home. Patient has complained of pain after arriving from ER, but systolic blood pressure in the 80s. Provided patient with a specimen cup for sputum sample, he reported that he had a productive cough, although not observed yet.
[2020-03-17 05:06] LABS: Basophils % 0.1 %; Hematocrit 30.7 % (42.0-52.0); Hemoglobin 9.7 g/dL (11.7-16.6); Lymphocytes # 0.3 10^3/uL (0.8-4.8); Mean Corpuscular HGB Conc 31.6 g/dL (30.0-36.0); Mean Corpuscular Hemoglobin 35.4 pg (28.0-34.0); Mean Platelet Volume 9.4 fL (7.4-10.4); Monocytes # 0.1 10^3/uL (0.2-0.9); Monocytes % 1.2 %; Neutrophils # 7.25 10^3/uL (1.8-7.7); Neutrophils % 94.2 %; Nucleated Red Blood Cells % 0 %; Platelet Count 191 10^3/cmm (130-400); Red Blood Count 2.74 10^6/uL (4.1-5.3); Red Cell Distribution Width 14.5 % (12.1-15.1); White Blood Count 7.7 10^3/uL (4.0-10.0)
[2020-03-17 05:28] LABS: Troponin 5 6HR 8.86 ng/L (0-15)
[2020-03-17 05:29] LABS: Anion Gap 11.2 (5-19); Blood Urea Nitrogen 19 mg/dL (6-20); Calcium 8.9 mg/dL (8.5-10.5); Carbon Dioxide 29 mmol/L (22-29); Chloride 104 mmol/L (98-107); Glomerular Filtration Rate 175.3 mL/min (90-130); Glucose 168 mg/dL (65-115); Osmolality Calculated 296 mOsm/kg (285-295); Potassium 4.2 mmol/L (3.5-5.1); Sodium 140 mmol/L (136-145)
[2020-03-17 05:31] LABS: Troponin 5 6HR Delta -3.14 ng/L (0-12)
[2020-03-17] MEDS: HYDROmorphone 1 mg/mL INJ 1 mL IVP ×4 (06:22→22:48)
[2020-03-17] MEDS: famotidine 20 mg/2 mL INJ IVP ×2 (08:20→17:27)
[2020-03-17] MEDS: OLANZapine 5 mg TABLET J-TUBE (08:20)
[2020-03-17] MEDS: clopidogrel 75 mg Tablet J-TUBE (08:20)
[2020-03-17] MEDS: atorvastatin 40 mg Tablet 80 MG PO (08:20)
[2020-03-17] MEDS: aspirin 81 mg EC Tablet PO (08:20)
--- NOTE | 2020-03-17 09:07 | PM.PN ---
Subjective Subjective: Interval history: 49-year-old male with a past medical history significant for anxiety, depression,alcoholism, hepatitis-C, tobacco abuse, gastroesophageal reflux disease, esophageal cancer with mets to lung, subsequent mediport placement s/p radiation with subsequent 4 cycles of chemotherapy, dysphagia s/p PEG tube and chronic obstructive pulmonary disease who presented to ER with shortness of breath. He was recently admitted to acute care in [place] during which time he was treated for pneumonia and was found to have esophageal-pleural fistula with possible lung abscess which was not drained. No surgical intervention was done as he was high risk for intervention. He was discharged to [facility] where he did not like the care and signed out. He went to stay with his son who then brought him [place] [facility] [place]. Denied fever or chills. Noted pleuritic chest pain. Laboratory workup on arrival showed a WBC of 11.7, hemoglobin of 11.4, hematocrit 35.4 and a platelet count of 229. sodium 139, potassium 3.8, chloride 101, bicarb 32, BUN 20 and creatinine of 0.5. AST was elevated at 66, ALT of 71 and alkaline phosphatase 121. Total bilirubin is 0.5. CK of 8. troponin t trend was 12 - 9.77 - 8.86 at 6hr. D-dimer was elevated at 1.55. Chest x-ray was then performed which showed a cavitary complex mass the right upper medial lung/ mediastinum with coarse reticular nodular interstitial infiltrative changes. Also noted to have interstitial infiltrative changes in the right lower lung. No prior imaging studies were available to compare. A CTA Chest PE protocol was done performed. Multiple abnormalities were noted including possible esophageal pleural fistula. Defect in right aspect of the upper esophagus with a associated 4.8 cm subpleural fluid collection with a soft tissue density in the right upper lung measuring 4.8 cm. Bilateral tree in bud type reticular densities. cavitary 7.2mm JOSEPH nodule, RLL 9.2 mm nodule multiple LLL nodules measuring up to 9.6 cm and bibasilar atelectasis vs infiltrates. Initial vitals on arrival showed a blood pressure of 73/55, heart rate 121, respiratory rate 18, temperature 97.8 and 92% on 2 L. EKG had showed suspected ST elevation elevation in inferior leads however this was reviewed by cardiology and advised to treat medically. Patient was started on Lovenox 110 mg SQ x 1, decadron 6 mg IV x1 in ER and asa 81 mg PO daily, High dose statin 80 mg lipitor daily, Plavix 75 mg PO daily and continued on Lovenox 40 mg SQ q12hr. ECHO performed showed depressed EF with Ejection fraction of 35-40%. Of note patient denied any prior cardiac issues. No prior dx of coronary artery disease or heart failure Patient was suspected to be in shock due to cardiogenic vs septic from pulmonary infection. he was started on broad spectrum antibiotics including Primaxin 500mg IV q8hr, Zyvox 600mg IV q12hr, In ER he was given zosyn 3.375g IV x 1 and Levaquin 750 mg IV x 1. Patient continued to decline upon admission with increasing oxygen requirements to 5L via NC, worsening hypotension given additional 500cc bolus after which he improved. Subjective : 03/17 Patient was complaining of generalized pain requesting additional pain meds. No fever, chills, nausea or vomiting. Tube Feeding was started on continued at 20cc/hr. Was noted to by hypotensive with SBP < 80 requiring 500cc bolus. Did not have chest pain. Vitals/I&O/Wt Last Vital Signs Temp 97.8 F 03/17/20 07:45 Pulse 68 03/17/20 07:45 Resp 18 03/17/20 07:45 BP 88/63 03/17/20 07:45 Pulse Ox 100 03/17/20 07:45 03/16/20 03/17/20 03/17/20 22:59 06:59 14:59 Intake Total 550 / 550 Balance 550 / 550 Weight last 48 hrs Weight 44.452 kg Physical Exam Narrative: EXAM NARRATIVE: General : Chronically ill appearing HEENT : Grossly unremarkable CVS : NSR CHEST: Non-labored respiration on 4L of o2 via NC ABD; Peg tube in place Ext : no edema Data : 03/17/20 04:00 03/17/20 04:00 Micro: Microbiology 03/17/20 04:00 Blood Culture - Preliminary Blood SPECIMEN COLLECTED A&P Assessment and plan (1) Acute respiratory failure with hypoxia: Status: Acute (2) Community acquired pneumonia: Status: Acute (3) Pneumonia: Status: Acute Qualifiers: Laterality: right Lung location: upper lobe of lung Pneumonia type: due to unspecified organism Qualified Code(s): J18.9 - Pneumonia, unspecified organism (4) Esophageal cancer: Status: Acute Qualifiers: Malignant neoplasm of esophagus location: upper third Qualified Code(s): C15.3 - Malignant neoplasm of upper third of esophagus (5) Immunocompromised: Status: Acute (6) Pharyngeal cancer: Status: Acute (7) COPD (chronic obstructive pulmonary disease): Status: Acute Acute respiratory failure with hypoxia - Etiology multi-factorial - Pneumonia superimposed on new pulmonary mets with underlying COPD - Supplemental o2 as needed to maintain sats > 92 - Start on Duoneb q6hr, not previously on inhaled steroids/LABA may consider starting - S/p Decadron 6mg iv x 1 in ER - Due to risk of worsening sepsis will hold off on continuing - See below for management of d/dx - Pulmonary medicine was consulted Sepsis with hypotension due to 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 - D/w General surgery and should patient like to proceed with this intervention would require transfer to [place] or [facility] for GI consult - This was discuss with patient with son at bedside - opted to continue IV abx for now - Has been afebrile with mildly elevated WBC count - Will continue Primixin 500 mg IV q8hr plus Vancomycin pharmacy to dose ( s/p zosyn 3.375g x 1 , levaquin 750 mg IV x 1 in ER ) - Will check pro-calcitonin x 1 now - Also check lactic acid - Follow upon blood culture x 2 - NGTD - Sputum culture - pending collection Acute systolic heart failure with EKG changes - Consideration for possible progression to cardiogenic shock vs septic as noted above. - No prior EKG or ECHO to compare, no prior CAD noted - Troponin -T - trend no impressive for ACS - -9.77 -8.86 - ST elevation ? - Cards reviewed r/o true STEMI - Recommended conservative tx - Started on Lovenox 40 mg SQ BID, Asa 81 mg PO daily, Plavix 75 mg PO daily, and lipitor 80 mg PO daily - ECHO - EF 35-40%, Not able to rule out wall motion abnormality. - Chest pain free however possibly ischemic in nature - Repeating ECG and troponin t series today - Cautious fluid resuscitation - Hypotensive currently - Not on Lasix Advanced Esophageal cancer with pulmonary mets - Multiple new lesion noted on CTA including cavitary nodule measuring up to 9mm in size - Follow oncology in [place] - S/P radiation and 4 cycles of chemotherapy - Last round was to be on 03/02 however he stated he did not receive - Will need to follow up with oncology outpatient - Obtain records from oncology office. - Medi-port in place Transaminitis - Hx of Alcoholism and Hepatitis C - Trend LFTs - repeat CMP in am Dysphagia s/p PEG tube - On tube feeding currently at 20cc/hr - measure residuals and advance to goal rate Gasteroesophageal reflux disease - PPI DVT ppx - Lovenox CODE status DNR Prognosis - Guarded - May consider Hospice consult Attestations Medical Necessity Statement*: Will require continued hospitalization for IV antibiotics and respiratory care. Time Spent in Patient Care: Greater than 35 minutes (>than 50% of time spent in counselling and/or direct pt care on unit). Coding Level of Care Code Acute Brewmaster for g Fwd Diagnoses Acute respiratory failure with hypoxia J96.01 Community acquired pneumonia J18.9 Pneumonia J18.9 Laterality: right Lung location: upper lobe of lung Pneumonia type: due to unspecified organism Esophageal cancer C15.3 Malignant neoplasm of esophagus location: upper third Immunocompromised D84.9 Pharyngeal cancer C14.0 COPD (chronic obstructive pulmonary disease) J44.9
--- NOTE | 2020-03-17 12:22 | PC.NURSE ---
pt BP 72/52, rechecked 79/47. notified Dr. Bustamante, received orders for a 500mL bolus of NS. current BP 90/60 after bolus.
[2020-03-17 12:37] LABS: Glucose Point of Care 98 mg/dL (70-110)
[2020-03-17] MEDS: sodium chloride 0.9% 500 ML 999 ML IV (12:38)
--- NOTE | 2020-03-17 14:33 | ECG_ITS ---
[facility] Test Date: 2020-03-17 Pat Name: Jessica Gonzalez Department: Room: 262 Gender: Male Automobile Tester: : 1970 Requested By: Daniel Bustamante Order Number: [id number] Black MD: Padma Aguilar M.D. Measurements Intervals [place] Rate: 59 P: 63 [place]: 197 QRS: 56 QRSD: 85 T: 71 QT: 413 QTc: 410 Interpretive Statements SINUS BRADYCARDIA MINIMAL ST DEPRESSION [0.025+ mV ST DEPRESSION] Compared to ECG 03/17/2020 00:15:26 Sinus rhythm no longer present First degree AV block no longer present ST (T wave) deviation still present Electronically Signed On 03-17-2020 19:26:48 WELL PULLER by Padma Aguilar M.D. [id number]
[2020-03-17] MEDS: enoxaparin 40 mg/0.4 mL Syringe SUBCUT (15:09)
[2020-03-17 16:26] LABS: Lactate (Lactic Acid level) 1.2 mmol/L (0.5-2.2)
[2020-03-17 16:28] LABS: Troponin(5th) Baseline 8 ng/L (0-15)
[2020-03-17 16:35] LABS: Procalcitonin 0.11 ng/mL (0-0.5)
--- NOTE | 2020-03-17 16:46 | PC.NURSE ---
pt's son, Ronak, requested to speak with Jean Gonsales RN. Ilda willis, pt spoke with JESSE Piper about pt wanting lottery tickets and to sneak in alcohol. pt then requested for this nurse and was asking this nurse and JESSE Piper about how to seek for legal gaurdianship. JESSE Piper, notifying social security assessor. jean Gonsales RN notified.
[2020-03-17 17:56] LABS: Glucose Point of Care 130 mg/dL (70-110)
--- NOTE | 2020-03-17 18:27 | PC.NURSE ---
pt called this nurse into room and stated that he is missing his cell phone. this nurse checked pt belongings with pt as well as all drawers in pt room. this nurse also checked underneath bed. pt still mising cell phone. pt stated he last had it in CT Scan and ER. called both units, no cell phone found. notified Fide Gonsales RN.
[2020-03-17 18:29] LABS: Troponin 5 2HR 9.55 ng/L (0-15); Troponin 5 2HR Delta 1.55 ABS# (0-10)
[2020-03-17 21:56] LABS: Troponin 5 6HR 10.72 ng/L (0-15); Troponin 5 6HR Delta 2.72 ng/L (0-12)
[2020-03-17] MEDS: LORazepam 2 mg/mL INJ 1 mL 0.5 MG IVP (23:49)
[2020-03-18] VITALS (16 sets, daily range): BP systolic 90–96; BP diastolic 56–62; PULSE 65–87; RESP 16–18; TEMP 36.4–36.8; O2SAT 3–98
[2020-03-18] MEDS: linezolid premix 600 MG/300 ML PREMIX 300 MG IV ×2 (03:00→18:14)
[2020-03-18] MEDS: HYDROmorphone 1 mg/mL INJ 1 mL IVP ×5 (03:00→23:03)
[2020-03-18] MEDS: enoxaparin 40 mg/0.4 mL Syringe SUBCUT ×2 (03:00→15:59)
[2020-03-18] MEDS: OLANZapine 5 mg TABLET J-TUBE (08:52)
[2020-03-18] MEDS: clopidogrel 75 mg Tablet J-TUBE (08:53)
[2020-03-18] MEDS: famotidine 20 mg/2 mL INJ IVP ×2 (08:53→18:39)
[2020-03-18] MEDS: atorvastatin 40 mg Tablet 80 MG PO (08:53)
[2020-03-18] MEDS: morphine IR 15 mg Tablet PO ×2 (09:05→21:36)
--- NOTE | 2020-03-18 11:54 | P.PN_ITS ---
Subjective Subjective: Interval history: No acute events overnight. Patient is complaining of back pain. He has remained afebrile, blood pressure is well maintained, has not been tachycardic, currently saturating well 2 L oxygen via nasal cannula. A.m. labs were not ordered. We will follow with the a.m. labs tomorrow in the morning. Medications: Reviewed: Yes Vitals/I&O/Wt Last Vital Signs Temp 98.0 F 03/18/20 11:41 Pulse 69 03/18/20 11:41 Resp 16 03/18/20 11:41 BP 92/57 03/18/20 11:41 Pulse Ox 97 03/18/20 11:41 03/17/20 03/18/20 03/18/20 22:59 06:59 14:59 Intake Total 400 / 2550 Output Total 400 / 400 100 / 100 Balance 400 / 2550 -400 / 2150 -100 / -100 Weight last 48 hrs Weight 44.452 kg Physical Exam Const: COMMON NORMALS: patient oriented x3 HENMT: COMMON NORMALS: normocephalic, atraumatic, hearing grossly normal bilaterally and external ears normal HEAD & SCALP: normocephalic and atraumatic EXTERNAL EAR: Yes external ears normal Eye: COMMON NORMALS: no scleral icterus GENERAL EYE: appearance normal, both eyes and all related structures Chest: COMMONS NORMALS: normal inspection of the chest CHEST: Yes Symmetrical chest wall rise Resp: COMMON NORMALS: normal respiratory effort and clear to auscultation bilaterally EFFORT & INSPECTION: Yes symmetric chest movement AUSCULTATION: clear to auscultation bilaterally Cardio: COMMON NORMALS: regular rate, regular rhythm, S1 normal heart sound present, S2 normal heart sound present, No gallops present (Cardio), No murmurs present (Cardio), No rub (Cardio) and Peripheral pulses 2+ throughout RATE: regular rate RHYTHM: regular rhythm HEART SOUNDS: S1 normal heart sound present and S2 normal heart sound present PERIPHERAL PULSES: Peripheral pulses 2+ throughout GI: COMMON NORMALS: Normal to inspection, nondistended, normoactive bowel sounds present, Soft to palpation, non-tender, No hepatosplenomegaly present and no masses AUSCULTATION: Yes normoactive bowel sounds PALPATION: Yes Soft to palpation and Yes No hepatosplenomegaly present RECTAL EXAM: Yes deferred OTHER: Peg tube in place Extremity: COMMON NORMALS: no clubbing, cyanosis or edema and no pedal edema Neuro: COMMON NORMALS: patient oriented x3 Data : 03/17/20 04:00 03/17/20 04:00 Micro: Microbiology 03/17/20 08:45 Gram Stain - Final Sputum - Expectorated Sputum Sputum Culture - Preliminary Yeast species 03/17/20 04:00 Blood Culture - Preliminary Blood NEGATIVE TO DATE 03/17/20 15:48 Blood Culture - Preliminary Blood SPECIMEN COLLECTED 03/17/20 11:55 Legionella Urinary Antigen - Final Urine,Clean Catch Bacterial Antigens - Final A&P Assessment and plan (1) Acute respiratory failure with hypoxia: Status: Acute (2) Community acquired pneumonia: Status: Acute (3) Pneumonia: Status: Acute Qualifiers: Laterality: right Lung location: upper lobe of lung Pneumonia type: due to unspecified organism Qualified Code(s): J18.9 - Pneumonia, unspecified organism (4) Esophageal cancer: Status: Acute Qualifiers: Malignant neoplasm of esophagus location: upper third Qualified Code(s): C15.3 - Malignant neoplasm of upper third of esophagus (5) Immunocompromised: Status: Acute (6) Pharyngeal cancer: Status: Acute (7) COPD (chronic obstructive pulmonary disease): Status: Acute Acute respiratory failure with hypoxia - Etiology multi-factorial - Pneumonia superimposed on new pulmonary mets with underlying COPD - Supplemental o2 as needed to maintain sats > 92 - Start on Duoneb q6hr, not previously on inhaled steroids/LABA may consider starting - S/p Decadron 6mg iv x 1 in ER - Due to risk of worsening sepsis will hold off on continuing - See below for management of d/dx - Pulmonary medicine was consulted Sepsis with hypotension due to 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 - D/w General surgery and should patient like to proceed with this intervention would require transfer to [place] or [facility] for GI consult - This was discuss with patient with son at bedside - opted to continue IV abx for now.Later patient has decided to go for possible intervention ( esophageal repair(either suture or clipping or stent placement). -CTS was consulted and is of the opinion that he will benefit from G.I consult for possible stent,given his h/o radiation. - Has been afebrile since admission. - Will continue Primixin 500 mg IV q8hr , zyvox 600 mg q12 h daily and will start him on voriconazole (03/18) for possible invasive aspergillous and fungal coverage ( s/p zosyn 3.375g x 1 , levaquin 750 mg IV x 1 in ER ) - pro-calcitonin : 0.11 - lactic acid :1.3 - Follow upon blood culture x 2 - NGTD - Sputum culture - Yeast - Follow up serum B.D,Glucan as well as galactomman assay -MRSA PCR : If negative will discotinue Zyvox. Acute systolic heart failure with EKG changes - Consideration for possible progression to cardiogenic shock vs septic as noted above. - No prior EKG or ECHO to compare, no prior CAD noted - Troponin -T - trend no impressive for ACS - -9.77 -8.86 - ST elevation ? - Cards reviewed r/o true STEMI - Recommended conservative tx - Started on Lovenox 40 mg SQ BID, Asa 81 mg PO daily, Plavix 75 mg PO daily, and lipitor 80 mg PO daily - ECHO - EF 35-40%, Not able to rule out wall motion abnormality. - Chest pain free however possibly ischemic in nature - Repeating ECG and troponin t series today - Cautious fluid resuscitation - Hypotensive currently - Not on Lasix Advanced Esophageal cancer with pulmonary mets - Multiple new lesion noted on CTA including cavitary nodule measuring up to 9mm in size - Follow oncology in [place] - S/P radiation and 4 cycles of chemotherapy - Last round was to be on 03/02 however he stated he did not receive - Will need to follow up with oncology outpatient - Obtain records from oncology office. - Medi-port in place - Pulmonary Rec appreciated ( Will need outpatient pulmonary follow up for further work up of pulmonary nodules - nodules could be metastatic or could be primary lung cancer due to chronic smoking history.PET/CT as outpatient and and possible EBUS/navigational [place] for tissue sampling accordingly ) Transaminitis - Hx of Alcoholism and Hepatitis C - Trend LFTs - repeat CMP in am Dysphagia s/p PEG tube - On tube feeding currently at 20cc/hr - measure residuals and advance to goal rate Gasteroesophageal reflux disease -Malnourished sarcopenia PEG tube with close monitoring as there is also a risk of aspiration pneumonitis/pneumonia We will keep feeding tube rate at 20 cc for now Nystatin application around PEG tube placement site DNR/DNI - PPI -DVT ppx - Lovenox -CODE status DNR/DNI Prognosis - Guarded - May consider Hospice consult Additional A&P Information Esophageal cancer with metastases to lung 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 Coding Level of Care Code Acute Immigration Associate for Chg Fwd Exam Comprehensive Diagnoses Acute respiratory failure with hypoxia J96.01 Community acquired pneumonia J18.9 Pneumonia J18.9 Laterality: right Lung location: upper lobe of lung Pneumonia type: due to unspecified organism Esophageal cancer C15.3 Malignant neoplasm of esophagus location: upper third Immunocompromised D84.9 Pharyngeal cancer C14.0 COPD (chronic obstructive pulmonary disease) J44.9
--- NOTE | 2020-03-18 12:41 | P.CONIM_ITS ---
Providers/Reason For Consult Consulting Physican/Specialty*: Jesús Haider MD / Pulmonary Medicine Reason for Consult*: Right aspect of the upper esophagus with an associated 4.8 cm subpleural collection of fluid with soft tissue density in the right upper lung measuring 4.8 cm with esophageal pleural fistula. Requesting Physcian: Farzad Guillermo MD Attending Physician: Farzad Guillermo MD History of Present Illness History of Present Illness Jessica Gonzalez is a 49-year-old male with a PMH significant for anxiety, depression,alcoholism, hepatitis-C, tobacco abuse, GERD, esophageal cancer with mets to lung, subsequent mediport placement s/p radiation with subsequent 4 cyc les of chemotherapy, dysphagia s/p PEG tube and COPD who presented to ER with shortness of breath and admitted to medical floor for management of right upper lobe pneumonia secondary to esophageal pleural fistula secondary to untreated esophageal cancer. He was recently admitted to acute care in [place] and treated for pneumonia and was found to have esophageal-pleural fistula with possible lung abscess which was not drained. No surgical intervention was done as he was high risk for intervention. He was discharged to [facility] where he did not like the care and signed out. He went to stay with his son who then brought [place] [facility] [place] Denied fever or chills. Noted pleuritic chest pain. Chest x-ray showed a cavitary complex mass the right upper medial lung/ mediastinum with coarse reticular nodular interstitial infiltrative changes. Also noted to have interstitial infiltrative changes in the right lower lung. No prior imaging studies were available to compare. A CTA Chest PE protocol showed Multiple abnormalities including possible esophageal pleural fistula. Defect in right aspect of the upper esophagus with an associated 4.8 cm subpleural fluid collection with a soft tissue density in the right upper lung measuring 4.8 cm. Bilateral tree in bud type reticular densities. cavitary 7.2mm JOSEPH nodule, RLL 9.2 mm nodule multiple LLL nodules measuring up to 9.6 mm and bibasilar atelectasis vs infiltrates. Pulmonary consult called for RUL pneumonia in the context of esophageal pleural fistula. Pt. seen at bedside today Saturating well on 2 L nasal cannula not in respiratory distress. Reported still having cough and feeling weak Says that brings up green color stuff whenever he coughs and is foul-smelling Reported smoking 1 pack a day since age 14 and quit in summer 2019, never diagnosed with COPD and never had PFTs but says that he has a nebulizer at home. Review of Systems General: Reports: 10 or more systems reviewed and unremarkable except in HPI and below Meds/Allergies Home Medications and Allergies Home Medications Medication Instructions Recorded Confirmed Last Taken Type alprazolam 1 mg PO DAILY@2100 03/16/20 03/16/20 03/15/20 History levofloxacin 500 mg FEEDING TUBE DAILY@0800 03/16/20 03/16/20 03/16/20 History olanzapine 5 mg FEEDING TUBE DAILY@0800 03/16/20 03/16/20 03/16/20 History oxycodone 5 mg FEEDING TUBE Q4H PRN 03/16/20 03/16/20 03/16/20 History prochlorperazine 10 mg FEEDING TUBE DAILY@0800 03/16/20 03/16/20 03/16/20 History Allergies Allergy/AdvReac Type Severity Reaction Status Date / Time No Known Allergies Allergy Verified 03/16/20 18:04 Current Medications Current Medications Generic Name Dose Route Start Last Admin Trade Name Freq PRN Reason Stop Dose Admin Atorvastatin Calcium 80 mg 03/17/20 09:00 03/18/20 08:53 Atorvastatin 40 Mg Tablet PO 80 mg DAILY ALESSANDRO Administration Clopidogrel Bisulfate 75 mg 03/17/20 09:00 03/18/20 08:53 Clopidogrel 75 Mg Tablet J-TUBE 75 mg DAILY ALESSANDRO Administration Enoxaparin Sodium 40 mg 03/17/20 03:00 03/18/20 03:00 Enoxaparin 40 Mg/0.4 Ml Syringe SUBCUT 40 mg Q12H ALESSANDRO Administration Famotidine 20 mg 03/17/20 09:00 03/18/20 08:53 Famotidine 20 Mg/2 Ml Inj IVP 20 mg BID ALESSANDRO Administration Hydromorphone HCl 1 mg 03/17/20 03:00 03/18/20 12:32 Hydromorphone 1 Mg/Ml Inj 1 Ml IVP 1 mg Q4H PRN Administration pain Imipenem/Cilastatin Sodium 500 100 mls @ 200 mls/hr 03/17/20 03:00 03/18/20 04:45 mg/ Sodium Chloride IV 200 mls/hr Q8H ALESSANDRO Administration Linezolid 600 mg in 300 mls @ 300 mls/hr 03/17/20 04:00 03/18/20 03:00 Zyvox Premix IV 300 mls/hr Q12H ALESSANDRO Administration Protocol Lorazepam 0.5 mg 03/17/20 23:39 03/17/20 23:49 Lorazepam 2 Mg/Ml Inj 1 Ml IVP 0.5 mg Q12H PRN Administration ANXIETY Morphine Sulfate 15 mg 03/18/20 09:00 03/18/20 09:05 Morphine Ir 15 Mg Tablet PO 15 mg Q12H ALESSANDRO Administration Olanzapine 5 mg 03/17/20 08:00 03/18/20 08:52 Olanzapine 5 Mg Tablet J-TUBE 5 mg DAILY@0800 ALESSANDRO Administration PFSH Acute PFSH: Medical History COPD (chronic obstructive pulmonary disease) Esophageal cancer GERD (gastroesophageal reflux disease) Malignant neoplasm determined by biopsy of esophagus Pharyngeal cancer Port-A-Cath in place Surgical History H/O hand surgery H/O knee surgery S/P percutaneous endoscopic gastrostomy (PEG) tube placement Family History Other No pertinent family history Social History Smoking and tobacco status: former smoker Alcohol intake: never Substance/Drug Use: never Housing: House Vitals/I&O/Wt Last Vital Signs Temp 98.0 F 03/18/20 11:41 Pulse 69 03/18/20 11:41 Resp 18 03/18/20 12:32 BP 92/57 03/18/20 11:41 Pulse Ox 97 03/18/20 11:41 03/17/20 03/18/20 03/18/20 22:59 06:59 14:59 Intake Total 400 / 2550 Output Total 400 / 400 100 / 100 Balance 400 / 2550 -400 / 2150 -100 / -100 Weight last 48 hrs Weight 98 lb Physical Exam Narrative: EXAM NARRATIVE: General: alert, NAD HEENT: conj clear, EOMI, PERRL, mmm, Neck: supple, no meningismus Heme: no cervical LAP Pulmonary: bilateral expiratory rhonchi Cardiovascular: rrr, nl s1s2, no mrg Abdomen: soft, nt, nd, no r/g, bs+ Extremities: pulses +, no edema, no c/c : no CVA tenderness Skin: intact, no rash MSK: no back or neck pain Neurologic: grossly intact Data Micro: Micro: Microbiology 03/17/20 08:45 Gram Stain - Final Sputum - Expector ated Sputum Sputum Culture - P reliminary Yeast species 03/17/20 04:00 Blood Culture - Pr eliminary Blood NEGATIVE TO CARTER E 03/17/20 15:48 Blood Culture - Pr eliminary Blood SPECIMEN COLLEC RUDY 03/17/20 11:55 Legionella Urinary Antigen - Final Urine,Clean Catch Bacterial Antigens - Final Other Data: Other data: Chest CTA 03/16/20: 1. Coronary artery atherosclerotic calcifications. 2. Defect in the right aspect of the upper esophagus with an associated 4.8 cm subpleural collection of fluid with soft tissue density in the right upper lung measuring 4.8 cm may reflect underlying malignancy and/or infection with a fistulous tract from the esophagus to the subpleural space. 3. Diffuse tree-in-bud type reticular nodular densities throughout the lungs may reflect an atypical mycobacterial infection, other etiologies not excluded. 4. Left upper lobe anterior segment 7.2 mm somewhat cavitary nodule. See below for management recommendation. 5. Right lower lobe 9.2 mm nodule. Highly suspicious nodule(s). Consider PET/CT, or tissue sampling.(Reference: Matheus) 6. Several left lower lobe pulmonary nodules with central calcifications measuring up 9.6 mm suggestive of granulomas. 7. Bibasilar atelectasis versus infiltrate. 8. Percutaneous gastric tube tip in the stomach. Echo 03/17/20: Normal left ventricular size with diminished ejection fraction of 35 to 40%. The septum and anteroseptum appears to be diffusely hypokinetic. Possible hypokinesia of the apex. Segmental wall motion analysis difficult because of the very poor apical window. There is no pericardial effusion. No previous studies available for comparison Technically difficult study because of the poor ultrasonic window. A&P Assessment and plan (1) Immunocompromised: Status: Acute (2) Acute respiratory failure with hypoxia: Status: Acute (3) Pneumonia: Status: Acute Qualifiers: Laterality: right Lung location: upper lobe of lung Pneumonia type: due to unspecified organism Qualified Code(s): J18.9 - Pneumonia, unspecified organism (4) Esophageal cancer: Status: Acute Qualifiers: Malignant neoplasm of esophagus location: upper third Qualified Code(s): C15.3 - Malignant neoplasm of upper third of esophagus (5) COPD (chronic obstructive pulmonary disease): Status: Acute Qualifiers: COPD type: unspecified COPD Qualified Code(s): J44.9 - Chronic obstructive pulmonary disease, unspecified (6) Esophageal fissure: Status: Acute (7) Multiple lung nodules on CT: Status: Acute #Acute respiratory failure with hypoxia secondary to RUL pneumonia-likely aspiration of esophageal contents through esophageal pleural fistula #Diagnosed esophageal cancer as per patient-s/p radiation and chemotherapy #COPD in chronic smoker #Smoked 1 pack/day for 45 years and quit summer 2019 after his diagnosis with esophageal cancer #Multiple noncalcified lung nodules-? Metastatic versus primary lung cancer -CT chest showed soft tissue density in the right upper lung measuring 4.8 cm may reflect underlying malignancy and/or infection with a fistulous tract from the esophagus to the subpleural space. - Diffuse tree-in-bud type reticular nodular densities throughout the lungs may reflect an atypical mycobacterial infection -With obvious tract between esophagus and subpleural space chances of anaerobic aspiration pneumonia are high on differential and patient is currently covered with imipenem and vancomycin -Bacterial antigen, Legionella urine antigen, procalcitonin, lactic acid are negative -Send MRSA nares and if negative can DC linezolid -Recommend to switch to Zosyn for anaerobic coverage and continue for 7 days -Given his immunocompromised state-recommend to send beta D glucan and galactomannan and start voriconazole for Aspergillus coverage as well -Patient needs esophageal repair(either suture or clipping or stent placement) to prevent further episodes of aspiration into pleural space. Discussed the same with the patient and he agreed to pursue if it is feasible. Recommended CT surgery opinion and if possible GI consultation. -JOSEPH anterior segment 7.2 mm somewhat cavitary nodule. Right lower lobe 9.2 mm nodule. Highly suspicious nodule(s). Given the presence of esophageal cancer these nodules could be metastatic or could be primary lung cancer due to chronic smoking history. Consider PET/CT as outpatient and will plan for EBUS/navigational [facility] for tissue sampling accordingly. -Several left lower lobe pulmonary nodules with central calcifications measuring up 9.6 mm suggestive of-granulomas. -Recommend did DuoNeb nebulizations every 6 hour as needed while in hospital -Upon discharge, switch to Spiriva and referred to pulmonary clinic for evaluation and management of COPD and lung nodules Medical condition, labs, investigations, medications, counseling regarding medication compliance, side effects, importance of follow-up appointments, and plan of care-everything explained in detail to the patient. Patient verbalized understanding and agreed with the plan of care. Recommendations conveyed to hospitalist taking care of the patient Consult Attestations Medical Necessity Statement: Acute respiratory failure with hypoxia secondary to aspiration pneumonia due to esophageal pleural fistula in patient with underlying esophageal cancer. Time Spent in Patient Care: Greater than 35 minutes (>than 50% of time spent in counselling and/or direct pt care on unit) . Critical Care Time: Critical Care Time (min): 40 Coding Level of Care Code New Pt Acute Textile Colorist Dyer for Chg Fwd Patient Type New History Comprehensive Exam Comprehensive Medical Decision Making High Complexity Diagnoses Immunocompromised D84.9 Acute respiratory failure with hypoxia J96.01 Pneumonia J18.9 Laterality: right Lung location: upper lobe of lung Pneumonia type: due to unspecified organism Esophageal cancer C15.3 Malignant neoplasm of esophagus location: upper third COPD (chronic obstructive pulmonary disease) J44.9 COPD type: unspecified COPD Esophageal fissure K22.[address] nodules on [address] R91.8 Time Spent (min) 40
--- NOTE | 2020-03-18 16:34 | PC.RESP ---
Pulmonary Rehab information sent to patient.
[2020-03-18] MEDS: LORazepam 2 mg/mL INJ 1 mL 0.5 MG IVP (20:01)
[2020-03-19] VITALS (12 sets, daily range): BP systolic 92–103; BP diastolic 60–69; PULSE 79–89; RESP 16–18; TEMP 36.3–37; O2SAT 93–98
[2020-03-19] MEDS: enoxaparin 40 mg/0.4 mL Syringe SUBCUT ×2 (03:59→16:35)
[2020-03-19] MEDS: HYDROmorphone 1 mg/mL INJ 1 mL IVP ×3 (04:20→19:08)
[2020-03-19 06:03] LABS: Basophils % 0.1 %; Hematocrit 29.1 % (42.0-52.0); Hemoglobin 9.3 g/dL (11.7-16.6); Lymphocytes # 0.7 10^3/uL (0.8-4.8); Lymphocytes % 10.2 %; Mean Corpuscular Hemoglobin 35.4 pg (28.0-34.0); Mean Corpuscular Volume 110.6 fL (80-94); Mean Platelet Volume 9.1 fL (7.4-10.4); Monocytes # 0.7 10^3/uL (0.2-0.9); Monocytes % 9.9 %; Neutrophils % 79.2 %; Nucleated Red Blood Cells % 0 %; Platelet Count 192 10^3/cmm (130-400); Red Blood Count 2.63 10^6/uL (4.1-5.3); Red Cell Distribution Width 14.7 % (12.1-15.1)
[2020-03-19] MEDS: linezolid premix 600 MG/300 ML PREMIX 300 MG IV ×2 (06:26→18:32)
[2020-03-19 06:28] LABS: Alanine Aminotransferase 76 U/L (0-41); Albumin Level 2.5 g/dL (3.5-5.2); Alkaline Phosphatase 101 IU/L (40-130); Anion Gap 10.7 (5-19); Aspartate Amino Transferase 89 U/L (0-40); Blood Urea Nitrogen 13 mg/dL (6-20); Calcium 8.5 mg/dL (8.5-10.5); Carbon Dioxide 28 mmol/L (22-29); Chloride 101 mmol/L (98-107); Globulin 2.8 g/dL (1.3-4.6); Glomerular Filtration Rate 175.3 mL/min (90-130); Glucose 77 mg/dL (65-115); Osmolality Calculated 281 mOsm/kg (285-295); Potassium 3.7 mmol/L (3.5-5.1); Sodium 136 mmol/L (136-145); Total Bilirubin 0.3 mg/dL (0.15-1.2); Total Protein 5.3 g/dL (6.6-8.7)
[2020-03-19] MEDS: famotidine 20 mg/2 mL INJ IVP ×2 (09:14→18:32)
[2020-03-19] MEDS: morphine IR 15 mg Tablet PO (09:19)
[2020-03-19] MEDS: OLANZapine 5 mg TABLET J-TUBE (09:19)
[2020-03-19] MEDS: clopidogrel 75 mg Tablet J-TUBE (09:20)
[2020-03-19] MEDS: atorvastatin 40 mg Tablet 80 MG PO (09:20)
[2020-03-19] MEDS: aspirin 81 mg Chew Tablet PO (09:20)
--- NOTE | 2020-03-19 09:37 | PM.PN ---
Subjective Subjective: Interval history: Patient pain is well controlled.He is tolerating Tube feed well.Has remained afebrile and has maintained a good MAP, is saturating well on 2Ls oxygen via NC. WBC is appropriately trending down. Other Vitals and labs have been reviewed. Medications: Reviewed: Yes Vitals/I&O/Wt Last Vital Signs Temp 98.2 F 03/19/20 07:46 Pulse 83 03/19/20 07:46 Resp 18 03/19/20 09:19 BP 102/66 03/19/20 07:46 Pulse Ox 97 03/19/20 07:46 03/18/20 03/19/20 03/19/20 22:59 06:59 14:59 Intake Total 650 / 750 350 / 1100 Output Total 100 / 200 300 / 500 Balance 550 / 550 50 / 600 Physical Exam Narrative: EXAM NARRATIVE: Cachetic Male Const: COMMON NORMALS: patient oriented x3 HENMT: COMMON NORMALS: normocephalic and atraumatic HEAD & SCALP: normocephalic and atraumatic Chest: COMMONS NORMALS: normal inspection of the chest CHEST: Yes Symmetrical chest wall rise Resp: COMMON NORMALS: normal respiratory effort and clear to auscultation bilaterally EFFORT & INSPECTION: Yes symmetric chest movement AUSCULTATION: clear to auscultation bilaterally Cardio: COMMON NORMALS: regular rate, regular rhythm, S1 normal heart sound present, S2 normal heart sound present, No gallops present (Cardio) and No murmurs present (Cardio) RATE: regular rate RHYTHM: regular rhythm HEART SOUNDS: S1 normal heart sound present and S2 normal heart sound present GI: COMMON NORMALS: Normal to inspection, nondistended, normoactive bowel sounds present, Soft to palpation, non-tender, No hepatosplenomegaly present and no masses AUSCULTATION: Yes normoactive bowel sounds PALPATION: Yes Soft to palpation and Yes No hepatosplenomegaly present RECTAL EXAM: Yes deferred OTHER: PEG Tube site is clean Extremity: COMMON NORMALS: no clubbing, cyanosis or edema and no pedal edema Neuro: COMMON NORMALS: patient oriented x3 Data : 03/19/20 05:27 03/19/20 05:27 Micro: Microbiology 03/17/20 15:48 Blood Culture - Preliminary Blood NEGATIVE TO DATE 03/17/20 08:45 Gram Stain - Final Sputum - Expectorated Sputum Sputum Culture - Preliminary Yeast species 03/17/20 04:00 Blood Culture - Preliminary Blood NEGATIVE TO DATE A&P Assessment and plan (1) Acute respiratory failure with hypoxia: Status: Acute (2) Community acquired pneumonia: Status: Acute (3) Pneumonia: Status: Acute Qualifiers: Laterality: right Lung location: upper lobe of lung Pneumonia type: due to unspecified organism Qualified Code(s): J18.9 - Pneumonia, unspecified organism (4) Esophageal cancer: Status: Acute Qualifiers: Malignant neoplasm of esophagus location: upper third Qualified Code(s): C15.3 - Malignant neoplasm of upper third of esophagus (5) Immunocompromised: Status: Acute (6) Pharyngeal cancer: Status: Acute (7) COPD (chronic obstructive pulmonary disease): Status: Acute Qualifiers: COPD type: unspecified COPD Qualified Code(s): J44.9 - Chronic obstructive pulmonary disease, unspecified Acute respiratory failure with hypoxia - Etiology multi-factorial - Pneumonia superimposed on new pulmonary mets with underlying COPD - Supplemental o2 as needed to maintain sats > 92 - Start on Duoneb q6hr, not previously on inhaled steroids/LABA may consider starting - S/p Decadron 6mg iv x 1 in ER - Due to risk of worsening sepsis will hold off on continuing - See below for management of d/dx - Pulmonary medicine was consulted Sepsis with hypotension due to 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 - D/w General surgery and should patient like to proceed with this intervention would require transfer to [place] or [facility] for GI consult - This was discuss with patient with son at bedside - Initially opted to continue IV abx for now.Later patient has decided to go for possible intervention ( esophageal repair(either suture or clipping or stent placement). -CTS was consulted and is of the opinion that he will benefit from G.I consult for possible stent,given his h/o radiation. We have contacyed Dr.Daniel Hugh Nguyen MD at [facility] and have provided them the relevant informations awaiting to hear back from them. - Has been afebrile since admission. - Will continue Primixin 500 mg IV q8hr , zyvox 600 mg q12 h daily and will start him on voriconazole (03/18) for possible invasive aspergillous and fungal coverage ( s/p zosyn 3.375g x 1 , levaquin 750 mg IV x 1 in ER ) - pro-calcitonin : 0.11 - lactic acid :1.3 - Follow upon blood culture x 2 - NGTD - Sputum culture - Yeast - Follow up serum B.D,Glucan as well as galactomman assay -MRSA PCR : If negative will discotinue Zyvox. Acute systolic heart failure with EKG changes - Consideration for possible progression to cardiogenic shock vs septic as noted above. - No prior EKG or ECHO to compare, no prior CAD noted - Troponin -T - trend no impressive for ACS - -9.77 -8.86 - ST elevation ? - Cards reviewed r/o true STEMI - Recommended conservative tx - Started on Lovenox 40 mg SQ BID, Asa 81 mg PO daily, Plavix 75 mg PO daily, and lipitor 80 mg PO daily - ECHO - EF 35-40%, Not able to rule out wall motion abnormality. - Chest pain free however possibly ischemic in nature - Repeating ECG and troponin t series today - Cautious fluid resuscitation - Hypotensive currently - Not on Lasix Advanced Esophageal cancer with pulmonary mets - Multiple new lesion noted on CTA including cavitary nodule measuring up to 9mm in size - Follow oncology in [place] - S/P radiation and 4 cycles of chemotherapy - Last round was to be on 03/02 however he stated he did not receive - Will need to follow up with oncology outpatient - Obtain records from oncology office. - Medi-port in place - Pulmonary Rec appreciated ( Will need outpatient pulmonary follow up for further work up of pulmonary nodules - nodules could be metastatic or could be primary lung cancer due to chronic smoking history.PET/CT as outpatient and and possible EBUS/navigational [facility] for tissue sampling accordingly ) Transaminitis - Hx of Alcoholism and Hepatitis C - Trend LFTs - repeat CMP in am Dysphagia s/p PEG tube - On tube feeding currently at 20cc/hr - measure residuals and advance to goal rate Gasteroesophageal reflux disease -Malnourished sarcopenia PEG tube with close monitoring as there is also a risk of aspiration pneumonitis/pneumonia We will keep feeding tube rate at 20 cc for now Nystatin application around PEG tube placement site DNR/DNI - PPI -DVT ppx - Lovenox -CODE status DNR/DNI Prognosis - Guarded - May consider Hospice consult Additional A&P Information Esophageal cancer with metastases to lung 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 Coding Level of Care Code Acute Certified Technician Specialist for [facility] Fwd Diagnoses Acute respiratory failure with hypoxia J96.01 Community acquired pneumonia J18.9 Pneumonia J18.9 Laterality: right Lung location: upper lobe of lung Pneumonia type: due to unspecified organism Esophageal cancer C15.3 Malignant neoplasm of esophagus location: upper third Immunocompromised D84.9 Pharyngeal cancer C14.0 COPD (chronic obstructive pulmonary disease) J44.9 COPD type: unspecified COPD
--- NOTE | 2020-03-19 13:17 | P.TS_ITS ---
Transfer Summary Providers Date of Admission: 03/17/20 01:14 Date of Discharge: 03/19/20 Attending Provider at Admission: Farzad Mendez MD Attending Provider at Transfer: Aaron Mahoney MD Anticipated Date of Transfer: Anticipated date of transfer: 03/19/20 Receiving Facility & Provider: Receiving Provider: [] Receiving facility: [] Diagnoses at Discharge Discharge Diagnosis (1) Acute respiratory failure with hypoxia: Status: Acute (2) Pneumonia: Status: Acute Qualifiers: Laterality: right Lung location: upper lobe of lung Pneumonia type: due to unspecified organism Qualified Code(s): J18.9 - Pneumonia, unspecified organism (3) Esophageal cancer: Status: Acute Qualifiers: Malignant neoplasm of esophagus location: upper third Qualified Code(s): C15.3 - Malignant neoplasm of upper third of esophagus (4) Immunocompromised: Status: Chronic (5) Pharyngeal cancer: Status: Chronic (6) COPD (chronic obstructive pulmonary disease): Status: Acute Qualifiers: COPD type: unspecified COPD Qualified Code(s): J44.9 - Chronic obstructive pulmonary disease, unspecified Reason for Visit Reason for Visit: low o2 levels Hospital Course Hospital Course 49-year-old male with a past medical history significant for anxiety, depres britta,alcoholism, hepatitis-C, tobacco abuse, gastroesophageal reflux disease, esophageal cancer with mets to lung, subsequent mediport placement s/p radiation with subsequent 4 cycles of chemotherapy, dysphagia s/p PEG tube and chronic obstructive pulmonary disease who presented to ER with shortness of breath. He was recently admitted to acute care in [place] during which time he was treated for pneumonia and was found to have esophageal-pleural fistula with possible lung abscess which was not drained. No surgical intervention was done as he was high risk for intervention. He was discharged to [facility] where he did not like the care and signed out. He went to stay with his son who then brought him to the [facility]. Denied fever or chills. Noted pleuritic chest pain. Laboratory workup on arrival showed a WBC of 11.7, hemoglobin of 11.4, hematocrit 35.4 and a platelet count of 229. sodium 139, potassium 3.8, chloride 101, bicarb 32, BUN 20 and creatinine of 0.5. AST was elevated at 66, ALT of 71 and alkaline phosphatase 121. Total bilirubin is 0.5. CK of 8. troponin t trend was 12 - 9.77 - 8.86 at 6hr. D-dimer was elevated at 1.55. Chest x-ray was then performed which showed a cavitary complex mass the right upper medial lung/ mediastinum with coarse reticular nodular interstitial infiltrative changes. Also noted to have interstitial infiltrative changes in the right lower lung. No prior imaging studies were available to compare. A CTA Chest PE protocol was done performed. Multiple abnormalities were noted including possible esophageal pleural fistula. Defect in right aspect of the upper esophagus with a associated 4.8 cm subpleural fluid collection with a soft tissue density in the right upper lung measuring 4.8 cm. Bilateral tree in bud type reticular densities. cavitary 7.2mm JOSEPH nodule, RLL 9.2 mm nodule multiple LLL nodules measuring up to 9.6 cm and bibasilar atelectasis vs infiltrates. Initial vitals on arrival showed a blood pressure of 73/55, heart rate 121, respiratory rate 18, temperature 97.8 and 92% on 2 L. EKG had showed suspected ST elevation elevation in inferior leads however this was reviewed by cardiology and advised to treat medically. Patient was started on Lovenox 110 mg SQ x 1, decadron 6 mg IV x1 in ER and asa 81 mg PO daily, High dose statin 80 mg lipitor daily, Plavix 75 mg PO daily and continued on Lovenox 40 mg SQ q12hr. ECHO performed showed depressed EF with Ejection fraction of 35-40%. Of note patient denied any prior cardiac issues. No prior dx of coronary artery disease or heart failure.Patient has remained chest pain free during the entire hospital stay and is also compensated with regards to his HFrEF .Patient have been managed for sepsis 2/2 PNA/Possible lung abscess due to esophageal -pleural fistula.Has been on broad spectrum antibiotics including Primaxin 500mg IV q8hr, Zyvox 600mg IV q12hr, as well as voriconazle.Initially patient was hpotensive but has responded well to fluid bolus and has never been on any presser support medications. During his hospital stay pulmonary medicine as well as cardiothoracic surgery as well as general surgery was consulted regarding the management of esophageal pleural fistula. Multidisciplinary consultation was of the opinion that the patient is high risk for any surgical intervention given his prior history of radiation and is an ideal candidate for GI intervention.[facility] was contacted and they have gracefully accepted the patient for further management. Currently he is stable to be transferred to [facility] for the management of esophageal pleural fistula. Pertinent imaging studies: CT angio chest PE protcl: 1. Coronary artery atherosclerotic calcifications. 2. Defect in the right aspect of the upper esophagus with an associated 4.8 cm subpleural collection of fluid with soft tissue density in the right upper lung measuring 4.8 cm may reflect underlying malignancy and/or infection with a fistulous tract from the esophagus to the subpleural space. 3. Diffuse tree-in-bud type reticular nodular densities throughout the lungs may reflect an atypical mycobacterial infection, other etiologies not excluded. 4. Left upper lobe anterior segment 7.2 mm somewhat cavitary nodule. See below for management recommendation. 5. Right lower lobe 9.2 mm nodule. Highly suspicious nodule(s). Consider PET/CT, or tissue sampling.(Reference: Matheus) 6. Several left lower lobe pulmonary nodules with central calcifications measuring up 9.6 mm suggestive of granulomas. 2DECHO: Normal left ventricular size with diminished ejection fraction of 35 to 40%. The septum and anteroseptum appears to be diffusely hypokinetic. Possible hypokinesia of the apex. Cultures: -blood culture x 2 - NGTD. - Sputum culture - Yeast - Follow up serum B.D,Glucan as well as galactomman assay -MRSA PCR : Pending Urine : Legionella and Bacterial antigen panel Negative. Physical Exam Const: COMMON NORMALS: patient oriented x3 HENMT: COMMON NORMALS: normocephalic and atraumatic HEAD & SCALP: normocephalic and atraumatic Chest: COMMONS NORMALS: normal inspection of the chest Resp: COMMON NORMALS: normal respiratory effort and clear to auscultation bilaterally EFFORT & INSPECTION: Yes symmetric chest movement AUSCULTATION: clear to auscultation bilaterally Cardio: COMMON NORMALS: regular rate, regular rhythm, S1 normal heart sound present, S2 normal heart sound present and Peripheral pulses 2+ throughout RATE: regular rate RHYTHM: regular rhythm HEART SOUNDS: S1 normal heart sound present and S2 normal heart sound present PERIPHERAL PULSES: Peripheral pulses 2+ throughout GI: COMMON NORMALS: Normal to inspection, nondistended, normoactive bowel sounds present, Soft to palpation and non-tender AUSCULTATION: Yes normoactive bowel sounds PALPATION: Yes Soft to palpation RECTAL EXAM: Yes deferred OTHER: PEG tube site is clean Extremity: COMMON NORMALS: no clubbing, cyanosis or edema and no pedal edema Neuro: COMMON NORMALS: patient oriented x3 TS Data Data Completed and Pending: Completed Studies During Hospitalization Category Date Time Status CT angio chest PE protcl [id number] Stat Cat Scan 03/16/20 20:00 Completed XR chest 1V gabriele ble [id number] Stat Exams 03/16/20 18:13 Completed CV echo complete* [id number] Routine Ultrasound 03/17/20 03:00 Completed Pending at discharge Category Date Time Status Blood Culture Sta t Lab 03/17/20 15:48 Results CBC Auto Diff [Co mplete Blood Count w/Auto] AM LABS Lab 03/20/20 04:00 Ordered CBC Auto Diff [Co mplete Blood Count w/Auto] AM LABS Lab 03/21/20 04:00 Ordered CMP [Comprehensiv e Metabolic Panel] AM LABS Lab 03/20/20 04:00 Ordered CMP [Comprehensiv e Metabolic Panel] AM LABS Lab 03/21/20 04:00 Ordered MRSA by PCR AM LA BS Lab 03/19/20 06:30 Received Miscellaneous Teressa t Routine Lab 03/18/20 14:22 Received Miscellaneous Teressa t Routine Lab 03/18/20 17:48 Received Sputum Culture an d Gram Stain Stat Lab 03/17/20 08:45 Results Labs from last 24 hours 03/19/20 03/19/20 03/19/20 05:27 05:27 05:27 WBC 7.0 RBC 2.63 L Hgb 9.3 L Hct 29.1 L MCV 110.6 H MCH 35.4 H MCHC 32.0 RDW 14.7 Plt Count 192 MPV 9.1 Neut % (Auto) 79.2 Lymph % (Auto) 10.2 [place] % (Auto) 9.9 Eos % (Auto) 0.0 Baso % (Auto) 0.1 Neut # (Auto) 5.50 Lymph # (Auto) 0.7 L [place] # (Auto) 0.7 Eos # (Auto) 0.0 Baso # (Auto) 0.0 Nucleated RBC % (a uto) 0 Nucleated RBCs # 0.0 Sodium 136 Potassium 3.7 Chloride 101 Carbon Dioxide 28 Anion Gap 10.7 BUN 13 Creatinine 0.5 L GFR Calculation 175.3 H Glucose 77 Calculated Osmolal ity 281 L Calcium 8.5 Total Bilirubin 0.3 AST 89 H ALT 76 H Alkaline Phosphata se 101 Total Protein 5.3 L Albumin 2.5 L Globulin 2.8 Misc Test Referenc e Pending 03/19/20 05:27 WBC RBC Hgb Hct MCV MCH MCHC RDW Plt Count MPV Neut % (Auto) Lymph % (Auto) [place] % (Auto) Eos % (Auto) Baso % (Auto) Neut # (Auto) Lymph # (Auto) [place] # (Auto) Eos # (Auto) Baso # (Auto) Nucleated RBC % (a uto) Nucleated RBCs # Sodium Potassium Chloride Carbon Dioxide Anion Gap BUN Creatinine GFR Calculation Glucose Calculated Osmolal ity Calcium Total Bilirubin AST ALT Alkaline Phosphata se Total Protein Albumin Globulin Misc Test Referenc e Pending Vitals: Last Vital Signs Temp 97.4 F L 03/19/20 11:42 Pulse 88 03/19/20 11:42 Resp 16 03/19/20 11:42 BP 92/61 03/19/20 11:42 Pulse Ox 93 03/19/20 11:42 TS Medications Medications Home Medications alprazolam 1 mg PO DAILY@2100 03/16/20 [History Confirmed 03/16/20] levofloxacin 500 mg FEEDING TUBE DAILY@0800 03/16/20 [History Confirmed 03/16/20] olanzapine 5 mg FEEDING TUBE DAILY@0800 03/16/20 [History Confirmed 03/16/20] oxycodone 5 mg FEEDING TUBE Q4H PRN 03/16/20 [History Confirmed 03/16/20] prochlorperazine 10 mg FEEDING TUBE DAILY@0800 03/16/20 [History Confirmed 03/16/20] Active Medications Aspirin (Aspirin 81 Mg Chew Tablet) 81 mg PO DAILY [facility] Last Admin: 03/19/20 09:20 Dose: 81 mg Documented by: Atorvastatin Calcium (Atorvastatin 40 Mg Tablet) 80 mg PO DAILY [facility] Last Admin: 03/19/20 09:20 Dose: 80 mg Documented by: Clopidogrel Bisulfate (Clopidogrel 75 Mg Tablet) 75 mg J-TUBE DAILY [facility] Last Admin: 03/19/20 09:20 Dose: 75 mg Documented by: Enoxaparin Sodium (Enoxaparin 40 Mg/0.4 Ml Syringe) 40 mg SUBCUT Q12H [facility] Last Admin: 03/19/20 03:59 Dose: 40 mg Documented by: Famotidine (Famotidine 20 Mg/2 Ml Inj) 20 mg IVP BID [facility] Last Admin: 03/19/20 09:14 Dose: 20 mg Documented by: Hydromorphone HCl (Hydromorphone 1 Mg/Ml Inj 1 Ml) 1 mg IVP Q4H PRN PRN Reason: pain Last Admin: 03/19/20 04:20 Dose: 1 mg Documented by: Imipenem/Cilastatin Sodium 500 (mg/ Sodium Chloride) 100 mls @ 200 mls/hr IV Q8H [facility] Last Admin: 03/19/20 12:16 Dose: 200 mls/hr Documented by: Linezolid (Zyvox Premix) 600 mg in 300 mls @ 300 mls/hr IV Q12H ALESSANDRO; Protocol Last Admin: 03/19/20 06:26 Dose: 300 mls/hr Documented by: Voriconazole 180 mg/ Sodium (Chloride) 100 mls @ 100 mls/hr IV Q12H ALESSANDRO Lorazepam (Lorazepam 2 Mg/Ml Inj 1 Ml) 0.5 mg IVP Q12H PRN PRN Reason: ANXIETY Last Admin: 03/18/20 20:01 Dose: 0.5 mg Documented by: Morphine Sulfate (Morphine Ir 15 Mg Tablet) 15 mg PO Q12H [facility] Last Admin: 03/19/20 09:19 Dose: 15 mg Documented by: Olanzapine (Olanzapine 5 Mg Tablet) 5 mg J-TUBE DAILY@0800 [facility] Last Admin: 03/19/20 09:19 Dose: 5 mg Documented by: Ondansetron HCl (Ondansetron 2 Mg/Ml Sdv 2 Ml) 4 mg IVP Q6H PRN PRN Reason: NAUSEA AND VOMITING Discharge Plan Discharge Patient Disposition: Xfer Other Condition: Stable Prescriptions: New hydromorphone (PF) 1 mg/mL Solution 1 mg IVP Q4H PRN (Reason: pain) 7 Days RF: 0 lorazepam 2 mg/mL Solution 0.5 mg IVP Q12H PRN (Reason: Anxiety) 7 Days RF: 0 morphine 15 mg Tablet 15 mg PO Q12H 7 Days Qty: 14 RF: 0 atorvastatin 40 mg Tablet 80 mg PO DAILY 7 Days RF: 0 clopidogrel 75 mg Tablet 75 mg J-tube DAILY 7 Days RF: 0 famotidine (PF) 20 mg/2 mL Solution 20 mg IVP BID 7 Days Qty: 28 RF: 0 ondansetron HCl (PF) 4 mg/2 mL Solution 4 mg IVP Q6H PRN (Reason: Nausea And Vomiting) 7 Days RF: 0 aspirin 81 mg Tablet,Chewable 81 mg PO DAILY 7 Days RF: 0 Continued alprazolam 1 mg Tablet 1 mg PO DAILY@2100 RF: 0 olanzapine 5 mg Tablet 5 mg feeding tube DAILY@0800 RF: 0 oxycodone 5 mg tablet 5 mg feeding tube Q4H PRN (Reason: Pain) RF: 0 prochlorperazine 10 mg feeding tube DAILY@0800 RF: 0 Held levofloxacin 750 mg tablet 500 mg feeding tube DAILY@0800 RF: 0 Hold Instructions: Resume on 04/02/20. Discharge Orders: Discharge Order (Routine); Ordered 03/19/20 Ordered By: Aaron Mahoney Discharge Diet: Usual diet Discharge Activity: Increase activity as tolerated Transfer Attestations Time Spent in Transfer Care*: greater than 30 min Specific Discharge Activities: Specific discharge activities: educating patient, educating and/or supporting family/caregiver, discussing with immigration case manager/social workers/dc planners, documenting/other paperwork and evaluating patient/reviewing data Status at Transfer: Cognitive status at transfer: cognitively intact , Behavioral status at transfer: cooperative , Functional status at transfer: independent ambulation Quality Metrics Clinical Quality Measures: During this hospital stay, did patient experience: None Coding Level of Care Code Acute Lung Gun Operator for [facility] Fwd Exam Detailed Diagnoses Acute respiratory failure with hypoxia J96.01 Pneumonia J18.9 Laterality: right Lung location: upper lobe of lung Pneumonia type: due to unspecified organism Esophageal cancer C15.3 Malignant neoplasm of esophagus location: upper third Immunocompromised D84.9 Pharyngeal cancer C14.0 COPD (chronic obstructive pulmonary disease) J44.9 COPD type: unspecified COPD
--- NOTE | 2020-03-19 17:41 | PC.NURSE ---
Report called to Aparna ward RN at [facility], room 6219
--- NOTE | 2020-03-19 19:00 | PC.NURSE ---
Patient report give to [facility] ambulance crew.
== END 2020-03-19 19:00 | disposition short-term general hospital (02) | DRG 871 ==
LOC: ER 03-17 00:58 → ICU 03-17 01:44 → MEDSURG 03-17 03:00
PROVIDERS: Family Medicine; Hospitalist; Admitting Provider Internal Medicine; Emergency Provider Emergency Medicine; Visit Provider Internal Medicine
DX: A41.9 Sepsis, unspecified organism (principal); J86.0 Pyothorax with fistula; J18.9 Pneumonia, unspecified organism; J96.01 Acute respiratory failure with hypoxia; I50.21 Acute systolic (congestive) heart failure; C15.3 Malignant neoplasm of upper third of esophagus; C78.01 Secondary malignant neoplasm of right lung; J44.0 Chronic obstructive pulmonary disease with (acute) lower respiratory infection; E46 Unspecified protein-calorie malnutrition; Z68.1 Body mass index [BMI] 19.9 or less, adult; D84.821 Immunodeficiency due to drugs; F10.20 Alcohol dependence, uncomplicated; Z93.1 Gastrostomy status; Z95.828 Presence of other vascular implants and grafts; Z92.3 Personal history of irradiation; Z79.899 Other long term (current) drug therapy; I95.9 Hypotension, unspecified; K21.9 Gastro-esophageal reflux disease without esophagitis; Z87.891 Personal history of nicotine dependence; Z66 Do not resuscitate; F41.8 Other specified anxiety disorders; F32.9 Major depressive disorder, single episode, unspecified; I25.10 Atherosclerotic heart disease of native coronary artery without angina pectoris; R91.8 Other nonspecific abnormal finding of lung field; M54.9 Dorsalgia, unspecified; T45.1X5A Adverse effect of antineoplastic and immunosuppressive drugs, initial encounter; Z87.01 Personal history of pneumonia (recurrent); B19.20 Unspecified viral hepatitis C without hepatic coma
CPT/HCPCS: 12345; 36415; 36416; 36591; 71045; 71275; 80048; 80053; 82550; 82962; 83605; 84145; 84484; 85025; 85378; 86140; 86403; 87040; 87070; 87106; 87205; 87305; 87426; 87449; 87641; 93005; 93306; 96372; 96375; 99283; J0743; J1100; J1170; J1650; J1956; J2020; J2060; J2270; J2405; J2543; J3465; J3490; J7030; J7040; J7050; Q9967